=== PATIENT | male | born 1990 | race American Indian/Alaskan Native ===

== ENCOUNTER 2017-03-12 00:17 | Emergency (ER) | payer OTHER ==
[2017-03-12 01:20] LABS: Basophils % (Auto) 0.3 % (0.0-1.8); Eosinophils % (Auto) 3.6 % (0.0-4.3); Hematocrit 44.4 % (35.5-45.6); Hemoglobin 15.2 gm/dl (11.8-15.2); Mean Corpuscular HGB Conc 34 % (32-34); Mean Corpuscular Hemoglobin 31 pg (28-32); Mean Corpuscular Volume 89 fl (84-94); Platelet Count 169 K/mm3 (140-440); Red Blood Count 4.96 M/mm3 (3.65-5.03); Red Cell Distribution Width 12.7 % (13.2-15.2); White Blood Count 12.3 K/mm3 (4.5-11.0)
--- NOTE | 2017-03-12 01:20 | XRay Report ---
FINAL REPORT EXAM: XR CHEST ROUTINE 2V HISTORY: shortness of breath TECHNIQUE: PA and lateral views of the chest were submitted. FINDINGS: The lungs are clear. The heart size is normal. Pleural fluid is not seen. The bones and soft tissues are well maintained. IMPRESSION: Within normal limits.
[2017-03-12 01:31] LABS: Anion Gap 18 mmol/L; BUN/Creatinine Ratio 9; Blood Urea Nitrogen 11 mg/dL (9-20); Carbon Dioxide 27 mmol/L (22-30); Chloride 99.2 mmol/L (98-107); Glucose 95 mg/dL (75-100); Sodium 140 mmol/L (137-145)
[2017-03-12] MEDS ORDERED: PROVENTIL IH ONE ×4 (02:28→03:01)
[2017-03-12] MEDS ORDERED: DELTASONE PO ONE (03:02)
[2017-03-12] MEDS ORDERED: ATROVENT IH ONE ×2 (03:03→03:12)
[2017-03-12] MEDS ORDERED: DUONEB *Not for PRN Use IH ONE ×2 (07:55→07:58)
--- NOTE | 2017-03-12 10:09 | Emergency Department Report ---
ED Shortness of Breath HPI - General Chief Complaint: Upper Respiratory Infection Stated Complaint: SOB Time Seen by Provider: 03/12/17 06:40 Source: patient Mode of arrival: Ambulatory Limitations: No Limitations - History of Present Illness Initial Comments: The complains of white productive sputum, wheezing for the last few days. He denies fever chills chest pain leg pain swelling or recent travel. He states he 's been treated with bronchodilator type medicine past. Never been hospitalized however. He experienced some tightness in his chest associated with his wheezing but not otherwise. MD Complaint: "asthma attack" -: days(s) Quality: other Consistency: intermittent Improves With: nothing Worsens With: nothing Associated Symptoms: denies other symptoms - Related Data Previous Rx's Medication Instructions Recorded Last Taken Type ALBUTEROL Inhaler [ProAir HFA 2 puff IH QID PRN #1 inhalation 03/12/17 Unknown Rx Inhaler] Azithromycin [Zithromax] 250 mg PO DAILY #6 tablet 03/12/17 Unknown Rx predniSONE [Deltasone] 40 mg PO QDAY #7 tab 03/12/17 Unknown Rx Allergies Allergy/AdvReac Type Severity Reaction Status Date / Time No Known Allergies Allergy Unverified 12/29/12 23:32 ED Review of Systems ROS: Stated complaint: SOB Other details as noted in HPI Constitutional: denies: chills, fever Eyes: denies: eye pain, eye discharge, vision change ENT: denies: ear pain, throat pain Respiratory: cough, wheezing Cardiovascular: denies: chest pain, palpitations Endocrine: no symptoms reported Gastrointestinal: denies: abdominal pain, nausea, diarrhea Genitourinary: denies: urgency, dysuria Musculoskeletal: denies: back pain, joint swelling, arthralgia Skin: denies: rash, lesions Neurological: denies: headache, weakness, paresthesias Psychiatric: denies: anxiety, depression Hematological/Lymphatic: denies: easy bleeding, easy bruising ED Past Medical Hx - Past Medical History Previous Medical History?: Yes Hx Asthma: Yes - Surgical History Past Surgical History?: No - Social History Smoking Status: Current Every Day Smoker Substance Use Type: Alcohol, Marijuana - Medications Home Medications: Home Medications Medication Instructions Recorded Confirmed Last Taken Type ALBUTEROL Inhaler [ProAir HFA 2 puff IH QID PRN #1 inhalation 03/12/17 Unknown Rx Inhaler] Azithromycin [Zithromax] 250 mg PO DAILY #6 tablet 03/12/17 Unknown Rx predniSONE [Deltasone] 40 mg PO QDAY #7 tab 03/12/17 Unknown Rx ED Physical Exam - General Limitations: No Limitations General appearance: alert, in no apparent distress - Head Head exam: Present: atraumatic, normocephalic - Eye Eye exam: Present: normal appearance. Absent: scleral icterus - ENT ENT exam: Present: mucous membranes moist - Neck Neck exam: Present: normal inspection - Respiratory Respiratory exam: Present: wheezes. Absent: respiratory distress - Cardiovascular Cardiovascular Exam: Present: regular rate, normal rhythm. Absent: systolic murmur, diastolic murmur, rubs, gallop - GI/Abdominal GI/Abdominal exam: Present: soft, normal bowel sounds. Absent: distended, tenderness, guarding, rebound, rigid - Rectal Rectal exam: Present: deferred - Extremities Exam Extremities exam: Present: normal inspection - Back Exam Back exam: Present: normal inspection - Neurological Exam Neurological exam: Present: alert, oriented X3 - Psychiatric Psychiatric exam: Present: normal affect, normal mood - Skin Skin exam: Present: warm, dry, intact, normal color. Absent: rash ED Course Vital Signs 03/12/17 03/12/17 03/12/17 00:48 02:33 02:47 Temperature 98.3 F Pulse Rate 94 H Pulse Rate [ 94 H 99 H Posterior Bilateral Throughout] Respiratory 20 Rate Respiratory 22 22 Rate [Posterior Bilateral Throughout] Blood Pressure 118/55 Blood Pressure [Left] O2 Sat by Pulse 95 Oximetry 03/12/17 03/12/17 03/12/17 03:05 04:06 04:15 Temperature 98.6 F Pulse Rate 110 H Pulse Rate [ 100 H 114 H Posterior Bilateral Throughout] Respiratory 18 Rate Respiratory 22 22 Rate [Posterior Bilateral Throughout] Blood Pressure Blood Pressure 115/70 [Left] O2 Sat by Pulse 95 Oximetry 03/12/17 03/12/17 03/12/17 06:30 07:20 07:46 Temperature 97.8 F Pulse Rate 82 79 76 Pulse Rate [ Posterior Bilateral Throughout] Respiratory 18 14 17 Rate Respiratory Rate [Posterior Bilateral Throughout] Blood Pressure Blood Pressure 134/63 128/59 [Left] O2 Sat by Pulse 92 95 94 Oximetry 03/12/17 03/12/17 03/12/17 07:58 08:00 08:16 Temperature Pulse Rate 85 114 H Pulse Rate [ 83 Posterior Bilateral Throughout] Respiratory 8 L 15 Rate Respiratory 18 Rate [Posterior Bilateral Throughout] Blood Pressure 131/65 131/65 Blood Pressure [Left] O2 Sat by Pulse 94 93 Oximetry 03/12/17 03/12/17 03/12/17 08:30 08:40 08:46 Temperature Pulse Rate 86 88 Pulse Rate [ 87 Posterior Bilateral Throughout] Respiratory 17 19 Rate Respiratory 18 Rate [Posterior Bilateral Throughout] Blood Pressure 126/67 126/67 Blood Pressure [Left] O2 Sat by Pulse 93 93 Oximetry 03/12/17 03/12/17 03/12/17 09:00 09:16 09:30 Temperature Pulse Rate 93 H 78 76 Pulse Rate [ Posterior Bilateral Throughout] Respiratory 16 19 18 Rate Respiratory Rate [Posterior Bilateral Throughout] Blood Pressure 125/77 125/77 117/63 Blood Pressure [Left] O2 Sat by Pulse 93 89 92 Oximetry 03/12/17 03/12/17 03/12/17 09:46 10:00 10:16 Temperature Pulse Rate 93 H 72 101 H Pulse Rate [ Posterior Bilateral Throughout] Respiratory 22 23 15 Rate Respiratory Rate [Posterior Bilateral Throughout] Blood Pressure 117/63 127/67 127/67 Blood Pressure [Left] O2 Sat by Pulse 92 89 92 Oximetry 03/12/17 03/12/17 03/12/17 10:30 10:46 11:00 Temperature Pulse Rate 75 90 83 Pulse Rate [ Posterior Bilateral Throughout] Respiratory 19 17 17 Rate Respiratory Rate [Posterior Bilateral Throughout] Blood Pressure 131/72 131/72 131/72 Blood Pressure [Left] O2 Sat by Pulse 93 93 94 Oximetry 03/12/17 03/12/17 03/12/17 11:16 11:30 11:46 Temperature Pulse Rate 84 81 71 Pulse Rate [ Posterior Bilateral Throughout] Respiratory 20 20 27 H Rate Respiratory Rate [Posterior Bilateral Throughout] Blood Pressure 134/68 134/68 134/57 Blood Pressure [Left] O2 Sat by Pulse 95 90 88 Oximetry 03/12/17 03/12/17 03/12/17 12:00 12:16 12:30 Temperature Pulse Rate 64 72 80 Pulse Rate [ Posterior Bilateral Throughout] Respiratory 22 20 19 Rate Respiratory Rate [Posterior Bilateral Throughout] Blood Pressure 114/52 114/52 114/52 Blood Pressure [Left] O2 Sat by Pulse 89 89 92 Oximetry 03/12/17 03/12/17 12:46 13:00 Temperature Pulse Rate 93 H 88 Pulse Rate [ Posterior Bilateral Throughout] Respiratory 17 18 Rate Respiratory Rate [Posterior Bilateral Throughout] Blood Pressure 133/79 123/56 Blood Pressure [Left] O2 Sat by Pulse 92 93 Oximetry - Reevaluation(s) Reevaluation #1: Wheezing resolved after medication. Patient desires discharge. 03/12/17 14:01 ED Medical Decision Making - Lab Data Result diagrams: 03/12/17 00:55 03/12/17 00:55 Laboratory Results - last 24 hr 03/12/17 03/12/17 00:55 00:55 WBC 12.3 H RBC 4.96 Hgb 15.2 Hct 44.4 MCV 89 MCH 31 MCHC 34 RDW 12.7 L Plt Count 169 Lymph % (Auto) 14.0 [place] % (Auto) 12.6 H Eos % (Auto) 3.6 Baso % (Auto) 0.3 Lymph # 1.7 [place] # 1.6 H Eos # 0.4 Baso # 0.0 Seg Neutrophils % 69.5 Seg Neutrophils # 8.6 H Sodium 140 Potassium 4.0 Chloride 99.2 Carbon Dioxide 27 Anion Gap 18 BUN 11 Creatinine 1.2 Estimated GFR > 60 BUN/Creatinine Ratio 9 Glucose 95 Calcium 10.0 - EKG Data EKG shows normal: sinus rhythm, axis, intervals, QRS complexes, ST-T waves Rate: normal - EKG Data Interpretation: nonspecific ST-T wave smita - Radiology Data interpreted by me: Chest x-ray shows no acute process Critical care attestation.: If time is entered above; I have spent that time in minutes in the direct care of this critically ill patient, excluding procedure time. ED Disposition Clinical Impression: Reactive airways dysfunction syndrome Qualifiers: Asthma severity: moderate Asthma persistence: persistent Asthma complication type: uncomplicated Qualified Code(s): J45.40 - Moderate persistent asthma, uncomplicated Acute bronchitis Qualifiers: Bronchitis organism: unspecified organism Qualified Code(s): J20.9 - Acute bronchitis, unspecified Disposition: DC-01 TO HOME OR SELFCARE Is pt being admited?: No Does the pt Need Aspirin: No Condition: Stable Instructions: Acute Bronchitis (ED), Reactive Airways Disease (ED) Additional Instructions: Do not smoke. This will make your wheezing recur. Rx as directed. Follow-up with a primary care physician or [facility]. Prescriptions: ALBUTEROL Inhaler [ProAir HFA Inhaler] 2 puff IH QID PRN #1 inhalation PRN Reason: Wheezing Azithromycin [Zithromax] 250 mg PO DAILY #6 tablet predniSONE [Deltasone] 40 mg PO QDAY #7 tab Referrals: PRIMARY CARE, [Primary Care Provider] - 3-5 Days Time of Disposition: 14:04
[2017-03-12] MEDS ORDERED: MAGNESIUM SULFATE 2GM/50ML 2 GM/50 ML BAG IV ONE (10:14)
[2017-03-12] MEDS ORDERED: NACL 0.9% 1000 ML 1,000 ML IV ONE (10:14)
[2017-03-12] MEDS ORDERED: ZITHROMAX PO ONE (10:15)
[2017-03-12 13:32] VITALS: BP 123/56
== END 2017-03-12 14:20 | disposition home or self-care (01) ==
LOC: ED 00:17
DX: J45.40 Moderate persistent asthma, uncomplicated (principal); J20.9 Acute bronchitis, unspecified; F17.200 Nicotine dependence, unspecified, uncomplicated
CPT/HCPCS: 36415; 71020; 80048; 85025; 87040; 93005; 93010; 94640; 96365; 99284; J3475; J7030; J7512

== ENCOUNTER 2018-07-21 23:04 | Emergency (ER) | payer OTHER ==
[2018-07-21] MEDS ORDERED: PROVENTIL IH ONE ×3 (23:14→23:43)
[2018-07-21] MEDS ORDERED: DUONEB *Not for PRN Use IH ONE ×2 (23:14→23:17)
[2018-07-21] MEDS ORDERED: BENADRYL IM ONE (23:43)
[2018-07-21] MEDS ORDERED: DELTASONE PO STA (23:43)
--- NOTE | 2018-07-22 00:50 | Emergency Department Report ---
ED Asthma HPI - General Chief Complaint: Dyspnea/Respdistress Stated Complaint: ROSA Time Seen by Provider: 07/21/18 23:43 Source: patient Mode of arrival: Ambulatory Limitations: No Limitations - History of Present Illness Initial Comments: 27-year-old male with past history of asthma exacerbation department complaining of a flareup. States that he has a known history of asthma and utilizes an inhaler off and on with pollen increase she's been having sinus congestion, wheezing and coughing. No fever, chills, sweats, no hemoptysis, hematemesis, no hematochezia. States that this child's nebulizer at home helps his symptoms. MD Complaint: wheezing -: Gradual Severity: mild Context: allergen exposure Associated Symptoms: productive cough Treatments Prior to Arrival: inhaled bronchodilator - Related Data Current Asthma Therapy: none Previous Rx's Medication Instructions Recorded Last Taken Type ALBUTEROL Inhaler (OR & NICU) 2 puff IH QID PRN #1 inhalation 03/12/17 Unknown Rx [ProAir HFA Inhaler] Azithromycin [Zithromax] 250 mg PO DAILY #6 tablet 03/12/17 Unknown Rx predniSONE [Deltasone] 40 mg PO QDAY #7 tab 03/12/17 Unknown Rx ALBUTEROL Inhaler (OR & NICU) 1 puff IH Q4-6H PRN #1 inha 07/22/18 Unknown Rx [ProAir HFA Inhaler] ALBUTEROL NEB's [Proventil 0.083% 2.5 mg IH TID PRN #30 neb 07/22/18 Unknown Rx NEBS] Amoxicillin/Potassium Clav 1 each PO BID #20 tablet 07/22/18 Unknown Rx [Augmentin 875-125 Tablet] Nebulizer and Compressor 1 each MC PRN #1 each 07/22/18 Unknown Rx [Devilbiss Pulmoneb Lt Comp-Neb] predniSONE [Deltasone] 50 mg PO QDAY #5 tab 07/22/18 Unknown Rx Allergies Allergy/AdvReac Type Severity Reaction Status Date / Time No Known Allergies Allergy Unverified 12/29/12 23:32 ED Review of Systems ROS: Stated complaint: ROSA Other details as noted in HPI Constitutional: denies: chills, fever Eyes: denies: eye pain, eye discharge, vision change ENT: denies: ear pain, throat pain Respiratory: denies: cough, shortness of breath, wheezing Cardiovascular: denies: chest pain, palpitations Endocrine: no symptoms reported Gastrointestinal: denies: abdominal pain, nausea, diarrhea Genitourinary: denies: urgency, dysuria Musculoskeletal: denies: back pain, joint swelling, arthralgia Skin: denies: rash, lesions Neurological: denies: headache, weakness, paresthesias Psychiatric: denies: anxiety, depression Hematological/Lymphatic: denies: easy bleeding, easy bruising ED Past Medical Hx - Past Medical History Previous Medical History?: Yes Hx Asthma: Yes Additional medical history: sleep apnea - Surgical History Past Surgical History?: No - Social History Smoking Status: Current Every Day Smoker Substance Use Type: Alcohol - Medications Home Medications: Home Medications Medication Instructions Recorded Confirmed Last Taken Type ALBUTEROL Inhaler (OR & NICU) 2 puff IH QID PRN #1 inhalation 03/12/17 Unknown Rx [ProAir HFA Inhaler] Azithromycin [Zithromax] 250 mg PO DAILY #6 tablet 03/12/17 Unknown Rx predniSONE [Deltasone] 40 mg PO QDAY #7 tab 03/12/17 Unknown Rx ALBUTEROL Inhaler (OR & NICU) 1 puff IH Q4-6H PRN #1 inha 07/22/18 Unknown Rx [ProAir HFA Inhaler] ALBUTEROL NEB's [Proventil 0.083% 2.5 mg IH TID PRN #30 neb 07/22/18 Unknown Rx NEBS] Amoxicillin/Potassium Clav 1 each PO BID #20 tablet 07/22/18 Unknown Rx [Augmentin 875-125 Tablet] Nebulizer and Compressor 1 each MC PRN #1 each 07/22/18 Unknown Rx [Devilbiss Pulmoneb Lt Comp-Neb] predniSONE [Deltasone] 50 mg PO QDAY #5 tab 07/22/18 Unknown Rx ED Physical Exam - General Limitations: No Limitations General appearance: alert, in no apparent distress - Head Head exam: Present: atraumatic, normocephalic - Eye Eye exam: Present: normal appearance, PERRL, EOMI - ENT ENT exam: Present: normal exam, normal orophraynx, mucous membranes moist, TM's normal bilaterally - Neck Neck exam: Present: normal inspection, full ROM. Absent: tenderness, lymphadenopathy - Respiratory Respiratory exam: Present: normal lung sounds bilaterally, wheezes. Absent: respiratory distress, rales, rhonchi, stridor, chest wall tenderness, accessory muscle use, decreased breath sounds - Cardiovascular Cardiovascular Exam: Present: regular rate, normal rhythm. Absent: bradycardia, systolic murmur, diastolic murmur, rubs, gallop - GI/Abdominal GI/Abdominal exam: Present: soft, normal bowel sounds. Absent: tenderness, guarding - Rectal Rectal exam: Present: deferred - Extremities Exam Extremities exam: Present: normal inspection - Back Exam Back exam: Present: normal inspection - Neurological Exam Neurological exam: Present: alert, oriented X3 - Psychiatric Psychiatric exam: Present: normal affect, normal mood - Skin Skin exam: Present: warm, dry, intact, normal color. Absent: rash ED Course Vital Signs 07/21/18 23:06 Temperature 97.9 F Pulse Rate 94 H Respiratory 20 Rate Blood Pressure 140/69 O2 Sat by Pulse 98 Oximetry - Reevaluation(s) Reevaluation #1: 07/22/18 00:57 Improve her breathing. Decreased wheezing. ED Medical Decision Making - Medical Decision Making Discussed with Mr. Acosta was in the [place] utilize his inhaler as prescribed and utilize a and obtain a home nebulizer. Also advised him nasal saline wash for his sinusitis and sinus congestion. Advised to complete the course of the anabiotic's Critical care attestation.: If time is entered above; I have spent that time in minutes in the direct care of this critically ill patient, excluding procedure time. ED Disposition Clinical Impression: Asthma, Sinusitis Disposition: DC-01 TO HOME OR SELFCARE Is pt being admited?: No Does the pt Need Aspirin: No Condition: Stable Instructions: Asthma (ED), Reactive Airways Disease (ED), Sinusitis (ED), Acute Bacterial Rhinosinusitis (ED) Prescriptions: predniSONE [Deltasone] 50 mg PO QDAY #5 tab ALBUTEROL Inhaler (OR & NICU) [ProAir HFA Inhaler] 1 puff IH Q4-6H PRN #1 inha PRN Reason: Cough Referrals: PRIMARY CARE, [Primary Care Provider] - 3-5 Days
[2018-07-22 01:53] VITALS: BP 145/79
== END 2018-07-22 01:20 | disposition home or self-care (01) ==
LOC: ED 23:04
DX: J32.9 Chronic sinusitis, unspecified (principal); J45.909 Unspecified asthma, uncomplicated; F17.200 Nicotine dependence, unspecified, uncomplicated; Z79.899 Other long term (current) drug therapy
CPT/HCPCS: 96372; 99283; J1200; J7512

== ENCOUNTER 2019-06-14 13:51 | Emergency (ER) | payer SELFPAY ==
[2019-06-14 15:16] VITALS: BP 141/76
--- NOTE | 2019-06-14 15:19 | Emergency Department Report ---
ED ENT HPI - General Chief complaint: Allergic Reaction Stated complaint: SORE THROAT, NECK PAIN Time Seen by Provider: 06/14/19 15:13 Source: EMS Mode of arrival: Ambulatory Limitations: No Limitations - History of Present Illness Initial comments: pt is a 28 yo male who presents to the ED with c/o sore throat that began last night. he has associated discomfort with swallowing. he denies any fever, n/v/d, no cough. he is able to tolerate PO intake. states that his girlfriend has strep throat. no PMHx. no allergies to meds. - Related Data Previous Rx's Medication Instructions Recorded Last Taken Type Albuterol INH(or & Nicu Only) 2 puff IH QID PRN #1 inhalation 03/12/17 Unknown Rx [ProAir HFA Inhaler] Azithromycin [Zithromax] 250 mg PO DAILY #6 tablet 03/12/17 Unknown Rx predniSONE [Deltasone] 40 mg PO QDAY #7 tab 03/12/17 Unknown Rx ALBUTEROL NEB's [Proventil 0.083% 2.5 mg IH TID PRN #30 neb 07/22/18 Unknown Rx NEBS] Albuterol INH(or & Nicu Only) 1 puff IH Q4-6H PRN #1 inha 07/22/18 Unknown Rx [ProAir HFA Inhaler] Amoxicillin/Potassium Clav 1 each PO BID #20 tablet 07/22/18 Unknown Rx [Augmentin 875-125 Tablet] Nebulizer and Compressor 1 each MC PRN #1 each 07/22/18 Unknown Rx [Devilbiss Pulmoneb Lt Comp-Neb] predniSONE [Deltasone] 50 mg PO QDAY #5 tab 07/22/18 Unknown Rx Allergies Allergy/AdvReac Type Severity Reaction Status Date / Time No Known Allergies Allergy Unverified 12/29/12 23:32 ED Dental HPI - General Chief complaint: Allergic Reaction Stated complaint: SORE THROAT, NECK PAIN Time Seen by Provider: 06/14/19 15:13 Source: EMS Mode of arrival: Ambulatory Limitations: No Limitations - Related Data Previous Rx's Medication Instructions Recorded Last Taken Type Albuterol INH(or & Nicu Only) 2 puff IH QID PRN #1 inhalation 03/12/17 Unknown Rx [ProAir HFA Inhaler] Azithromycin [Zithromax] 250 mg PO DAILY #6 tablet 03/12/17 Unknown Rx predniSONE [Deltasone] 40 mg PO QDAY #7 tab 03/12/17 Unknown Rx ALBUTEROL NEB's [Proventil 0.083% 2.5 mg IH TID PRN #30 neb 07/22/18 Unknown Rx NEBS] Albuterol INH(or & Nicu Only) 1 puff IH Q4-6H PRN #1 inha 07/22/18 Unknown Rx [ProAir HFA Inhaler] Amoxicillin/Potassium Clav 1 each PO BID #20 tablet 07/22/18 Unknown Rx [Augmentin 875-125 Tablet] Nebulizer and Compressor 1 each MC PRN #1 each 07/22/18 Unknown Rx [Devilbiss Pulmoneb Lt Comp-Neb] predniSONE [Deltasone] 50 mg PO QDAY #5 tab 07/22/18 Unknown Rx Allergies Allergy/AdvReac Type Severity Reaction Status Date / Time No Known Allergies Allergy Unverified 12/29/12 23:32 ED Review of Systems ROS: Stated complaint: SORE THROAT, NECK PAIN Other details as noted in HPI ED Past Medical Hx - Past Medical History Previous Medical History?: Yes Hx Asthma: Yes Additional medical history: sleep apnea - Surgical History Past Surgical History?: No - Social History Smoking Status: Current Every Day Smoker Substance Use Type: Alcohol - Medications Home Medications: Home Medications Medication Instructions Recorded Confirmed Last Taken Type Albuterol INH(or & Nicu Only) 2 puff IH QID PRN #1 inhalation 03/12/17 Unknown Rx [ProAir HFA Inhaler] Azithromycin [Zithromax] 250 mg PO DAILY #6 tablet 03/12/17 Unknown Rx predniSONE [Deltasone] 40 mg PO QDAY #7 tab 03/12/17 Unknown Rx ALBUTEROL NEB's [Proventil 0.083% 2.5 mg IH TID PRN #30 neb 07/22/18 Unknown Rx NEBS] Albuterol INH(or & Nicu Only) 1 puff IH Q4-6H PRN #1 inha 07/22/18 Unknown Rx [ProAir HFA Inhaler] Amoxicillin/Potassium Clav 1 each PO BID #20 tablet 07/22/18 Unknown Rx [Augmentin 875-125 Tablet] Nebulizer and Compressor 1 each MC PRN #1 each 07/22/18 Unknown Rx [Devilbiss Pulmoneb Lt Comp-Neb] predniSONE [Deltasone] 50 mg PO QDAY #5 tab 07/22/18 Unknown Rx ED Physical Exam - General Limitations: No Limitations ED Course Vital Signs 06/14/19 13:55 Temperature 97.8 F Pulse Rate 86 Respiratory 18 Rate Blood Pressure 141/71 [Right] O2 Sat by Pulse 100 Oximetry Critical care attestation.: If time is entered above; I have spent that time in minutes in the direct care of this critically ill patient, excluding procedure time. ED Disposition Condition: Stable
--- NOTE | 2019-06-14 15:20 | Event Note ---
ED Screening Note ED Screening Note: pt is a 28 yo male who presents to the ED with c/o sore throat that began last night. he has associated discomfort with swallowing. he denies any fever, n/v/d, no cough. he is able to tolerate PO intake. states that his girlfriend has strep throat. no PMHx. no allergies to meds. otitis externa left mild erythema of the posterior oropharynx, no exudates, no LAD does not meet centor for empiric tx, will swab for strep This initial assessment/diagnostic orders/clinical plan/treatment(s) is/are subject to change based on patients health status, clinical progression and re- assessment by fellow clinical providers in the ED. Further treatment and workup at subsequent clinical providers discretion. Patient/guardian urged not to elope from the ED as their condition may be serious if not clinically assessed and managed. Initial orders include: rapid strep
--- NOTE | 2019-06-14 17:54 | Emergency Department Report ---
ED ENT HPI - General Chief complaint: Allergic Reaction Stated complaint: SORE THROAT, NECK PAIN Time Seen by Provider: 06/14/19 15:13 Source: EMS Mode of arrival: Ambulatory Limitations: No Limitations - History of Present Illness Initial comments: pt is a 28 yo male who presents to the ED with c/o sore throat that began last night. he has associated discomfort with swallowing. he denies any fever, n/v/d, no cough. he is able to tolerate PO intake. states that his girlfriend has strep throat. no PMHx. no allergies to meds. - Related Data Previous Rx's Medication Instructions Recorded Last Taken Type Albuterol INH(or & Nicu Only) 2 puff IH QID PRN #1 inhalation 03/12/17 Unknown Rx [ProAir HFA Inhaler] Azithromycin [Zithromax] 250 mg PO DAILY #6 tablet 03/12/17 Unknown Rx predniSONE [Deltasone] 40 mg PO QDAY #7 tab 03/12/17 Unknown Rx ALBUTEROL NEB's [Proventil 0.083% 2.5 mg IH TID PRN #30 neb 07/22/18 Unknown Rx NEBS] Albuterol INH(or & Nicu Only) 1 puff IH Q4-6H PRN #1 inha 07/22/18 Unknown Rx [ProAir HFA Inhaler] Amoxicillin/Potassium Clav 1 each PO BID #20 tablet 07/22/18 Unknown Rx [Augmentin 875-125 Tablet] Nebulizer and Compressor 1 each MC PRN #1 each 07/22/18 Unknown Rx [Devilbiss Pulmoneb Lt Comp-Neb] predniSONE [Deltasone] 50 mg PO QDAY #5 tab 07/22/18 Unknown Rx Amoxicillin [Amoxicillin TAB] 875 mg PO BID 10 Days #20 tablet 06/14/19 Unknown Rx Allergies Allergy/AdvReac Type Severity Reaction Status Date / Time No Known Allergies Allergy Unverified 12/29/12 23:32 ED Dental HPI - General Chief complaint: Allergic Reaction Stated complaint: SORE THROAT, NECK PAIN Time Seen by Provider: 06/14/19 15:13 Source: EMS Mode of arrival: Ambulatory Limitations: No Limitations - Related Data Previous Rx's Medication Instructions Recorded Last Taken Type Albuterol INH(or & Nicu Only) 2 puff IH QID PRN #1 inhalation 03/12/17 Unknown Rx [ProAir HFA Inhaler] Azithromycin [Zithromax] 250 mg PO DAILY #6 tablet 03/12/17 Unknown Rx predniSONE [Deltasone] 40 mg PO QDAY #7 tab 03/12/17 Unknown Rx ALBUTEROL NEB's [Proventil 0.083% 2.5 mg IH TID PRN #30 neb 07/22/18 Unknown Rx NEBS] Albuterol INH(or & Nicu Only) 1 puff IH Q4-6H PRN #1 inha 07/22/18 Unknown Rx [ProAir HFA Inhaler] Amoxicillin/Potassium Clav 1 each PO BID #20 tablet 07/22/18 Unknown Rx [Augmentin 875-125 Tablet] Nebulizer and Compressor 1 each MC PRN #1 each 07/22/18 Unknown Rx [Devilbiss Pulmoneb Lt Comp-Neb] predniSONE [Deltasone] 50 mg PO QDAY #5 tab 07/22/18 Unknown Rx Amoxicillin [Amoxicillin TAB] 875 mg PO BID 10 Days #20 tablet 06/14/19 Unknown Rx Allergies Allergy/AdvReac Type Severity Reaction Status Date / Time No Known Allergies Allergy Unverified 12/29/12 23:32 ED Review of Systems ROS: Stated complaint: SORE THROAT, NECK PAIN Other details as noted in HPI Comment: All other systems reviewed and negative ED Past Medical Hx - Past Medical History Previous Medical History?: Yes Hx Asthma: Yes Additional medical history: sleep apnea - Surgical History Past Surgical History?: No - Social History Smoking Status: Current Every Day Smoker Substance Use Type: Alcohol, Marijuana - Medications Home Medications: Home Medications Medication Instructions Recorded Confirmed Last Taken Type Albuterol INH(or & Nicu Only) 2 puff IH QID PRN #1 inhalation 03/12/17 Unknown Rx [ProAir HFA Inhaler] Azithromycin [Zithromax] 250 mg PO DAILY #6 tablet 03/12/17 Unknown Rx predniSONE [Deltasone] 40 mg PO QDAY #7 tab 03/12/17 Unknown Rx ALBUTEROL NEB's [Proventil 0.083% 2.5 mg IH TID PRN #30 neb 07/22/18 Unknown Rx NEBS] Albuterol INH(or & Nicu Only) 1 puff IH Q4-6H PRN #1 inha 04/03/19 Unknown Rx [ProAir HFA Inhaler] Amoxicillin/Potassium Clav 1 each PO BID #20 tablet 07/22/18 Unknown Rx [Augmentin 875-125 Tablet] Nebulizer and Compressor 1 each MC PRN #1 each 07/22/18 Unknown Rx [Devilbiss Pulmoneb Lt Comp-Neb] predniSONE [Deltasone] 50 mg PO QDAY #5 tab 07/22/18 Unknown Rx Amoxicillin [Amoxicillin TAB] 875 mg PO BID 10 Days #20 tablet 06/14/19 Unknown Rx ED Physical Exam - General Limitations: No Limitations General appearance: alert, in no apparent distress - Head Head exam: Present: atraumatic, normocephalic - Eye Eye exam: Present: normal appearance - ENT ENT exam: Present: mucous membranes moist, TM's normal bilaterally, normal external ear exam, other (posterior orophraynx erythema, no tonsilar exudates or masses, mild hypertrophy of the bilateral tonsils, uvula is midline, no uvular edema, no uvular deviation) - Neck Neck exam: Absent: lymphadenopathy - Respiratory Respiratory exam: Present: normal lung sounds bilaterally. Absent: respiratory distress, wheezes, rales, rhonchi, stridor, chest wall tenderness, accessory muscle use, decreased breath sounds, prolonged expiratory - Cardiovascular Cardiovascular Exam: Present: regular rate, normal rhythm, normal heart sounds. Absent: systolic murmur, diastolic murmur, rubs, gallop - Neurological Exam Neurological exam: Present: alert, oriented X3 - Psychiatric Psychiatric exam: Present: normal affect, normal mood - Skin Skin exam: Present: warm, dry, intact ED Course Vital Signs 06/14/19 06/14/19 13:55 15:13 Temperature 97.8 F 97.8 F Pulse Rate 86 83 Respiratory 18 18 Rate Blood Pressure 141/76 Blood Pressure 141/71 [Right] O2 Sat by Pulse 100 99 Oximetry ED Medical Decision Making - Lab Data Lab Results 06/14/19 Range/Units Unknown Group A Strep Rapid Positive A (Negative) - Medical Decision Making pt is a 28 yo male who presents to the ED with c/o sore throat that began last night. he has associated discomfort with swallowing. he denies any fever, n/v/d, no cough. he is able to tolerate PO intake. states that his girlfriend has strep throat. no PMHx. no allergies to meds. on exam: posterior orophraynx erythema, no tonsilar exudates or masses, mild hypertrophy of the bilateral tonsils, uvula is midline, no uvular edema, no uvular deviation. vitals are normal. rapid strep is positive. given prescription for amoxicillin. advised to please take medication as prescribed. increase your fluid intake. may use warm salt water gargles and over the counter throat spray. may tylenol or ibuprofen as needed for discomfort. follow up with a primary care doctor. throw away your toothbrush. do not drink after others or allow others to drink after you. return to the emergency room for any new or worsening symptoms . - Differential Diagnosis pharyngitis, tonsillitis, peritonsillar abscess, viral syndrome Critical care attestation.: If time is entered above; I have spent that time in minutes in the direct care of this critically ill patient, excluding procedure time. ED Disposition Clinical Impression: Strep throat Disposition: DC-01 TO HOME OR SELFCARE Is pt being admited?: No Does the pt Need Aspirin: No Condition: Stable Instructions: Strep Throat (ED) Additional Instructions: please take medication as prescribed. increase your fluid intake. may use warm salt water gargles and over the counter throat spray. may tylenol or ibuprofen as needed for discomfort. follow up with a primary care doctor. throw away your toothbrush. do not drink after others or allow others to drink after you. return to the emergency room for any new or worsening symptoms . Prescriptions: Amoxicillin [Amoxicillin TAB] 875 mg PO BID 10 Days #20 tablet Referrals: AVERY HEATON MD [Staff Physician] - 3-5 Days [facility] [Outside] - 3-5 Days [facility] [Outside] - 3-5 Days Forms: Work/School Release Form(ED) Time of Disposition: 17:52 Print Language: NIGERIAN
== END 2019-06-14 18:20 | disposition home or self-care (01) ==
LOC: ED 13:51
DX: J02.0 Streptococcal pharyngitis (principal); B95.0 Streptococcus, group A, as the cause of diseases classified elsewhere; J45.909 Unspecified asthma, uncomplicated; F12.90 Cannabis use, unspecified, uncomplicated; F17.200 Nicotine dependence, unspecified, uncomplicated; G47.30 Sleep apnea, unspecified; Z79.899 Other long term (current) drug therapy
CPT/HCPCS: 87430

== ENCOUNTER 2019-11-28 22:52 | Emergency (ER) | payer SELFPAY ==
[2019-11-28] MEDS ORDERED: IPRATROPIUM/ALBUTEROL SULFATE 3 ML AMPUL.NEB IH ONE (23:20)
[2019-11-28] MEDS ORDERED: methylPREDNISolone Sod Succinate 125 MG/2 ML INJ IM ONE (23:20)
[2019-11-28] MEDS ORDERED: ALBUTEROL 2.5 MG/3 ML NEBU IH ONE (23:21)
--- NOTE | 2019-11-29 00:01 | XRay Report ---
CHEST 1 VIEW INDICATION / CLINICAL INFORMATION: dyspnea, asthma/bronchitis. COMPARISON: 03/12/2017 FINDINGS: SUPPORT DEVICES: None. HEART / MEDIASTINUM: No significant abnormality. LUNGS / PLEURA: No significant pulmonary or pleural abnormality. No pneumothorax. ADDITIONAL FINDINGS: No significant additional findings. IMPRESSION: No acute pulmonary or pleural abnormality. No change from 03/12/2017 Signer Name: Lazaro Ham MD FACEmilia Signed: 11/28/2019 11:57 PM Workstation Name: [id number]
--- NOTE | 2019-11-29 00:53 | Emergency Department Report ---
- General Chief Complaint: Adult Asthma Stated Complaint: BREATHING PROBLEMS/ASTHMA PUI?: No Source: patient Mode of arrival: Ambulatory Limitations: No Limitations - History of Present Illness Initial Comments: Patient is a 29-year-old -Maldivian male with a history of chronic bronchitis and obesity who presents to the ED with complaint of acute onset persistent nasal and sinus congestion, frontal sinus pressure, persistent dry cough with wheezing and shortness of breath for the last 2 days. Patient states that in the last 12 hours, the symptoms have worsened despite using his mother's albuterol inhaler. Patient states that the symptoms are similar to what he always experiences whenever his chronic bronchitis flares up. Patient denies chest pain, dizziness, syncope, fever, chills, nausea and vomiting, abdominal pain, diarrhea, sore throat, dysuria, traumatic injury or change in vision. MD Complaint: cough, rhinorrhea, nasal congestion, sinus pain, other (Shortness of breath, wheezing, and chest tightness) -: Sudden, days(s) (2) Severity: moderate Severity scale (0 -10): 5 Quality: dull, aching Consistency: intermittent Improves With: other (Albuterol inhaler, no relief) Worsens With: activity Associated Symptoms: denies other symptoms, headache, rhinorrhea, nasal congestion, cough, shortness of breath. denies: fever, chills, diaphoresis, sore throat, stiff neck, chest pain, abdominal pain, nausea, diarrhea, rash, right sweats, epistaxis, hoarseness, ear pain, other Treatments Prior to Arrival: other (Albuterol inhaler) - Related Data Previous Rx's Medication Instructions Recorded Last Taken Type Albuterol Mdi (or & Nicu Only) 2 puff IH QID PRN #1 inhalation 03/12/17 Unknown Rx [ProAir HFA Inhaler] predniSONE [Deltasone] 40 mg PO QDAY #7 tab 03/12/17 Unknown Rx Amoxicillin/Potassium Clav 1 each PO BID #20 tablet 07/22/18 Unknown Rx [Augmentin 875-125 Tablet] predniSONE [Deltasone] 50 mg PO QDAY #5 tab 07/22/18 Unknown Rx Amoxicillin [Amoxicillin TAB] 875 mg PO BID 10 Days #20 tablet 06/14/19 Unknown Rx ALBUTEROL NEB's [Proventil 0.083% 2.5 mg IH TID PRN #45 ml 11/29/19 Unknown Rx NEBS] Albuterol Mdi (or & Nicu Only) 1 puff IH Q4-6H PRN #1 inha 11/29/19 Unknown Rx [ProAir HFA Inhaler] Azithromycin [Zithromax Z-RE] 250 mg PO DAILY #6 tablet 11/29/19 Unknown Rx Nebulizer and Compressor 1 each MC PRN #1 each 11/29/19 Unknown Rx [Devilbiss Pulmoneb Lt Comp-Neb] Prednisone [predniSONE 10 mg 10 mg PO .TAPER #21 tab.ds.pk 11/29/19 Unknown Rx (6-Day Pack, 21 Tabs)] Allergies Allergy/AdvReac Type Severity Reaction Status Date / Time No Known Allergies Allergy Unverified 12/29/12 23:32 ED Review of Systems ROS: Stated complaint: BREATHING PROBLEMS/ASTHMA Other details as noted in HPI Constitutional: denies: chills, fever Eyes: denies: eye pain, eye discharge, vision change ENT: congestion, other (Frontal sinus pressure). denies: ear pain, throat pain Respiratory: cough, shortness of breath, wheezing Cardiovascular: chest pain (Chest tightness). denies: palpitations Endocrine: no symptoms reported. denies: excessive sweating Gastrointestinal: denies: abdominal pain, nausea, diarrhea Genitourinary: denies: urgency, dysuria Musculoskeletal: denies: back pain, joint swelling, arthralgia Skin: denies: rash, lesions Neurological: headache. denies: weakness, paresthesias Psychiatric: denies: anxiety, depression Hematological/Lymphatic: denies: easy bleeding, easy bruising ED Past Medical Hx - Past Medical History Previous Medical History?: Yes Hx Asthma: Yes Additional medical history: sleep apnea, Bronchitis - Surgical History Past Surgical History?: No - Social History Smoking Status: Former Smoker Substance Use Type: None - Medications Home Medications: Home Medications Medication Instructions Recorded Confirmed Last Taken Type Albuterol Mdi (or & Nicu Only) 2 puff IH QID PRN #1 inhalation 03/12/17 Unknown Rx [ProAir HFA Inhaler] predniSONE [Deltasone] 40 mg PO QDAY #7 tab 03/12/17 Unknown Rx Amoxicillin/Potassium Clav 1 each PO BID #20 tablet 07/22/18 Unknown Rx [Augmentin 875-125 Tablet] predniSONE [Deltasone] 50 mg PO QDAY #5 tab 07/22/18 Unknown Rx Amoxicillin [Amoxicillin TAB] 875 mg PO BID 10 Days #20 tablet 06/14/19 Unknown Rx ALBUTEROL NEB's [Proventil 0.083% 2.5 mg IH TID PRN #45 ml 11/29/19 Unknown Rx NEBS] Albuterol Mdi (or & Nicu Only) 1 puff IH Q4-6H PRN #1 inha 11/29/19 Unknown Rx [ProAir HFA Inhaler] Azithromycin [Zithromax Z-RE] 250 mg PO DAILY #6 tablet 11/29/19 Unknown Rx Nebulizer and Compressor 1 each MC PRN #1 each 11/29/19 Unknown Rx [Devilbiss Pulmoneb Lt Comp-Neb] Prednisone [predniSONE 10 mg 10 mg PO .TAPER #21 tab.ds.pk 11/29/19 Unknown Rx (6-Day Pack, 21 Tabs)] ED Physical Exam - General Limitations: No Limitations General appearance: alert, in no apparent distress - Head Head exam: Present: atraumatic, normocephalic, normal inspection - Eye Eye exam: Present: normal appearance, PERRL, EOMI Pupils: Present: normal accommodation - ENT ENT exam: Present: normal orophraynx, mucous membranes moist, normal external ear exam, other (Grossly congested nasal passages; palpable frontal sinus tenderness) - Neck Neck exam: Present: normal inspection, full ROM. Absent: tenderness, lymphadenopathy - Respiratory Respiratory exam: Present: wheezes (Diffuse coarse wheezes throughout). Absent: respiratory distress, rales, rhonchi, chest wall tenderness, accessory muscle use, decreased breath sounds, prolonged expiratory - Cardiovascular Cardiovascular Exam: Present: normal rhythm, tachycardia, normal heart sounds. Absent: systolic murmur, diastolic murmur, rubs, gallop - GI/Abdominal GI/Abdominal exam: Present: soft, normal bowel sounds. Absent: tenderness, guarding, rebound, hyperactive bowel sounds, hypoactive bowel sounds - Extremities Exam Extremities exam: Present: normal inspection, full ROM, normal capillary refill - Back Exam Back exam: Present: normal inspection, full ROM. Absent: tenderness, CVA tenderness (R), CVA tenderness (L), muscle spasm, paraspinal tenderness, vertebral tenderness - Neurological Exam Neurological exam: Present: alert, oriented X3, CN II-XII intact, normal gait, reflexes normal - Psychiatric Psychiatric exam: Present: normal affect, normal mood - Skin Skin exam: Present: warm, dry, intact, normal color. Absent: rash ED Course Vital Signs 11/28/19 11/29/19 22:57 01:37 Temperature 99.0 F 98.3 F Pulse Rate 101 H 98 H Respiratory 18 16 Rate Blood Pressure 148/82 Blood Pressure 140/87 [Left] O2 Sat by Pulse 96 99 Oximetry ED Medical Decision Making - Radiology Data Radiology results: report reviewed, image reviewed Findings [facility] [address] [place] [address] XRay Report Signed Patient: OLIVIER RING JR MR#: [id number] : 1990 Acct:[id number] Age/Sex: 29 / M ADM Date: 11/28/19 Loc: ED Attending Dr: Ordering Physician: MARK MOLINA Date of Service: 11/28/19 Procedure(s): XR chest 1V ap Accession Number(s): [id number] cc: MARK MOLINA Fluoro Time In Minutes: CHEST 1 VIEW INDICATION / CLINICAL INFORMATION: dyspnea, asthma/bronchitis. COMPARISON: 03/12/2017 FINDINGS: SUPPORT DEVICES: None. HEART / MEDIASTINUM: No significant abnormality. LUNGS / PLEURA: No significant pulmonary or pleural abnormality. No pneumothorax. ADDITIONAL FINDINGS: No significant additional findings. IMPRESSION: No acute pulmonary or pleural abnormality. No change from 03/12/2017 Signer Name: Lazaro Ham MD FACR Signed: 11/28/2019 11:57 PM Workstation Name: [id number] Transcribed By: MS Dictated By: Lazaro Ham MD Electronically Authenticated By: Lazaro Ham MD Signed Date/Time: 11/28/192356 DD/ 55 TD/TT: - Medical Decision Making This is a 29-year-old -Maldivian male with a history of chronic bronchitis and obesity who presents to the ED with complaint of acute onset persistent nasal and sinus congestion, frontal sinus pressure, persistent dry cough with wheezing and shortness of breath for the last 2 days. Patient states that in the last 12 hours, the symptoms have worsened despite using his mother's albuterol inhaler. Patient states that the symptoms are similar to what he always experiences whenever his chronic bronchitis flares up. In the ED, patient is alert and oriented x3 and is not in distress but tachycardic in triage. Patient received DuoNeb treatment in the ED and also steroids. On reevaluation, patient's wheezing resolved with medications. Patient felt better. Chest x-ray shows no acute cardiopulmonary abnormalities or pneumonitis. Patient will discharge home on medications including albuterol inhaler, Medrol Dosepak and advised to follow-up with his primary care physician in 5 to 7 days for reevaluation or return to the ED immediately if symptoms get worse. - Differential Diagnosis Bronchitis; asthma; Pneumonia; sinusitis; URI Critical care attestation.: If time is entered above; I have spent that time in minutes in the direct care of this critically ill patient, excluding procedure time. ED Disposition Clinical Impression: Acute bronchitis with asthma with acute exacerbation, Acute upper respiratory infection, Shortness of breath Disposition: - TO HOME OR SELFCARE Is pt being admited?: No Does the pt Need Aspirin: No Condition: Stable Instructions: Upper Respiratory Infection (ED), Acute Bronchitis (ED), Dyspnea (ED) Additional Instructions: Chest x-ray shows no acute cardiopulmonary abnormalities or pneumonitis. Therefore take medications with food, drink plenty of fluids and follow-up with your primary care physician in 5 to 7 days for reevaluation. Return to the ED immediately if symptoms get worse. Prescriptions: Nebulizer and Compressor [Devilbiss Pulmoneb Lt Comp-Neb] 1 each MC PRN #1 each Prednisone [predniSONE 10 mg (6-Day Pack, 21 Tabs)] 10 mg PO .TAPER #21 tab.ds.pk Albuterol Mdi (or & Nicu Only) [ProAir HFA Inhaler] 1 puff IH Q4-6H PRN #1 inha PRN Reason: Cough ALBUTEROL NEB's [Proventil 0.083% NEBS] 2.5 mg IH TID PRN #45 ml PRN Reason: Wheezing Azithromycin [Zithromax Z-RE] 250 mg PO DAILY #6 tablet Referrals: [facility] [Provider Group] - 7-10 days Time of Disposition: 00:59 Print Language: ITALIAN
[2019-11-29 02:05] VITALS: BP 140/87
== END 2019-11-29 01:37 | disposition home or self-care (01) ==
LOC: ED 22:52
DX: J45.901 Unspecified asthma with (acute) exacerbation (principal); J06.9 Acute upper respiratory infection, unspecified; R06.02 Shortness of breath; Z87.891 Personal history of nicotine dependence; Z79.899 Other long term (current) drug therapy
CPT/HCPCS: 71045; 94640; 96372; 99283; J2930; 94644

== ENCOUNTER 2020-02-05 00:09 | Emergency (ER) | payer SELFPAY ==
--- NOTE | 2020-02-05 03:02 | XRay Report ---
LEFT FOOT 3 VIEWS INDICATION / CLINICAL INFORMATION: left great toe pain COMPARISON: None available. FINDINGS: BONES / JOINT(S): No acute fracture or subluxation. No significant arthritis. No erosions are seen. SOFT TISSUES: No significant abnormality. ADDITIONAL FINDINGS: None. Signer Name: Cali Gilman MD Signed: 02/05/2020 2:58 AM Workstation Name: [id number]
[2020-02-05] MEDS ORDERED: methylPREDNISolone Sod Succinate 125 MG/2 ML INJ IM ONE (03:31)
--- NOTE | 2020-02-05 03:32 | Emergency Department Report ---
ED Lower Extremity HPI - General Chief Complaint: Extremity Injury, Lower Stated Complaint: lt toe pains Time Seen by Provider: 02/05/20 03:15 Source: patient Mode of arrival: Ambulatory Limitations: No Limitations - History of Present Illness Initial Comments: Patient is a 29-year-old male that presents emergency room with complaints of left great toe pain. Patient states his pain started 1 week ago and is worsening. Patient states the pain is in the base of the great toe. Patient states the pain is a 10 out of 10. Patient states the pain is better with rest and worse with movement and palpation. Patient states he does not drink alcohol but has been eating a lot of barbecue on pork lately. Patient denies fever and chills. Patient denies redness at the site. Patient denies chest pain or shortness of breath. Patient denies cough. Patient denies recent travel. Patient denies recent international travel. Patient denies exposure to the novel coronavirus. Patient denies sick contacts. Patient denies fever and chills. Patient denies cough. Patient denies diarrhea. Patient denies coming in contact with anybody with symptoms of the novel coronavirus. -: Sudden Injury: Toes: Left Type of Injury: other (Patient denies trauma or injury.) Place: home Severity: severe Severity scale (0 -10): 10 Improves With: rest Worsens With: weight bearing, movement, palpation Associated Symptoms: swelling, able to partially bear weight. denies: snap/pop sensation, numbness, tingling, ambulatory - Related Data Previous Rx's Medication Instructions Recorded Last Taken Type Albuterol Mdi (or & Nicu Only) 2 puff IH QID PRN #1 inhalation 03/12/17 Unknown Rx [ProAir HFA Inhaler] predniSONE [Deltasone] 40 mg PO QDAY #7 tab 03/12/17 Unknown Rx Amoxicillin/Potassium Clav 1 each PO BID #20 tablet 07/22/18 Unknown Rx [Augmentin 875-125 Tablet] predniSONE [Deltasone] 50 mg PO QDAY #5 tab 07/22/18 Unknown Rx Amoxicillin [Amoxicillin TAB] 875 mg PO BID 10 Days #20 tablet 06/14/19 Unknown Rx ALBUTEROL NEB's [Proventil 0.083% 2.5 mg IH TID PRN #45 ml 11/29/19 Unknown Rx NEBS] Albuterol Mdi (or & Nicu Only) 1 puff IH Q4-6H PRN #1 inha 11/29/19 Unknown Rx [ProAir HFA Inhaler] Azithromycin [Zithromax Z-RE] 250 mg PO DAILY #6 tablet 11/29/19 Unknown Rx Nebulizer and Compressor 1 each MC PRN #1 each 11/29/19 Unknown Rx [Devilbiss Pulmoneb Lt Comp-Neb] Acetaminophen/Codeine [Tylenol 1 tab PO Q6H PRN #10 tab 02/05/20 Unknown Rx /Codeine # 3 tab] Colchicine 0.6 mg PO DAILY 10 Days #10 capsule 02/05/20 Unknown Rx Prednisone [predniSONE 10 mg 10 mg PO .TAPER #21 tab.ds.pk 02/05/20 Unknown Rx (6-Day Pack, 21 Tabs)] Allergies Allergy/AdvReac Type Severity Reaction Status Date / Time No Known Allergies Allergy Unverified 12/29/12 23:32 ED Review of Systems ROS: Stated complaint: lt toe pains Other details as noted in HPI Constitutional: denies: chills, fever Eyes: denies: eye pain, eye discharge, vision change ENT: denies: ear pain, throat pain Respiratory: denies: cough, shortness of breath, wheezing Cardiovascular: denies: chest pain, palpitations Endocrine: no symptoms reported Gastrointestinal: denies: abdominal pain, nausea, diarrhea Genitourinary: denies: urgency, dysuria Musculoskeletal: denies: back pain, joint swelling, arthralgia Skin: denies: rash, lesions Neurological: denies: headache, weakness, paresthesias Psychiatric: denies: anxiety, depression Hematological/Lymphatic: denies: easy bleeding, easy bruising ED Past Medical Hx - Past Medical History Previous Medical History?: Yes Hx Asthma: Yes Additional medical history: sleep apnea, Bronchitis - Surgical History Past Surgical History?: No - Family History Family history: no significant - Social History Smoking Status: Never Smoker Substance Use Type: None - Medications Home Medications: Home Medications Medication Instructions Recorded Confirmed Last Taken Type Albuterol Mdi (or & Nicu Only) 2 puff IH QID PRN #1 inhalation 03/12/17 Unknown Rx [ProAir HFA Inhaler] predniSONE [Deltasone] 40 mg PO QDAY #7 tab 03/12/17 Unknown Rx Amoxicillin/Potassium Clav 1 each PO BID #20 tablet 07/22/18 Unknown Rx [Augmentin 875-125 Tablet] predniSONE [Deltasone] 50 mg PO QDAY #5 tab 07/22/18 Unknown Rx Amoxicillin [Amoxicillin TAB] 875 mg PO BID 10 Days #20 tablet 06/14/19 Unknown Rx ALBUTEROL NEB's [Proventil 0.083% 2.5 mg IH TID PRN #45 ml 11/29/19 Unknown Rx NEBS] Albuterol Mdi (or & Nicu Only) 1 puff IH Q4-6H PRN #1 inha 11/29/19 Unknown Rx [ProAir HFA Inhaler] Azithromycin [Zithromax Z-RE] 250 mg PO DAILY #6 tablet 11/29/19 Unknown Rx Nebulizer and Compressor 1 each MC PRN #1 each 11/29/19 Unknown Rx [Devilbiss Pulmoneb Lt Comp-Neb] Acetaminophen/Codeine [Tylenol 1 tab PO Q6H PRN #10 tab 02/05/20 Unknown Rx /Codeine # 3 tab] Colchicine 0.6 mg PO DAILY 10 Days #10 capsule 02/05/20 Unknown Rx Prednisone [predniSONE 10 mg 10 mg PO .TAPER #21 tab.ds.pk 02/05/20 Unknown Rx (6-Day Pack, 21 Tabs)] ED Physical Exam - General Limitations: No Limitations General appearance: alert, in no apparent distress - Head Head exam: Present: atraumatic, normocephalic - Eye Eye exam: Present: normal appearance - ENT ENT exam: Present: mucous membranes moist - Neck Neck exam: Present: normal inspection - Respiratory Respiratory exam: Present: normal lung sounds bilaterally. Absent: respiratory distress - Cardiovascular Cardiovascular Exam: Present: regular rate, normal rhythm. Absent: systolic murmur, diastolic murmur, rubs, gallop - GI/Abdominal GI/Abdominal exam: Present: soft, normal bowel sounds - Rectal Rectal exam: Present: deferred - Extremities Exam Extremities exam: Present: normal inspection - Back Exam Back exam: Present: normal inspection - Neurological Exam Neurological exam: Present: alert, oriented X3 - Psychiatric Psychiatric exam: Present: normal affect, normal mood - Skin Skin exam: Present: warm, dry, intact, normal color. Absent: rash ED Course Vital Signs 02/05/20 01:51 Temperature 98.3 F Pulse Rate 93 H Respiratory 18 Rate Blood Pressure 140/79 O2 Sat by Pulse 96 Oximetry - Reevaluation(s) Reevaluation #1: I discussed all results and clinical findings with patient. I discussed plan of care with patient. Patient agrees with plan of care. Patient is stable for discharge. Patient will be discharged home. Patient given discharge instructions. Patient voiced understanding of discharge instructions. 02/05/20 06:01 ED Lower Extremity MDM - Lab Data Result diagrams: 02/05/20 03:54 02/05/20 03:54 - Radiology Data Radiology results: report reviewed, image reviewed interpreted by me: Foot x-ray:, no foreign body, no osseous findings, no acute findings LEFT FOOT 3 VIEWS INDICATION / CLINICAL INFORMATION: left great toe pain COMPARISON: None available. FINDINGS: BONES / JOINT(S): No acute fracture or subluxation. No significant arthritis. No erosions are seen. SOFT TISSUES: No significant abnormality. ADDITIONAL FINDINGS: None. ... - Medical Decision Making Patient is a 29-year-old male that presents emergency room with complaints of pain at the left great toe MTP. Clinical findings are consistent with gout. Patient denies trauma. No cellulitis noted. Patient had labs done which were unremarkable. Patient given Solu-Medrol in the ER and his pain improved. Patient stable for discharge. Patient discharged home with prescriptions. Patient instructed to eat a gout diet and a low uric acid diet. - Differential Diagnosis Gout, toe sprain, toe pain, Critical care attestation.: If time is entered above; I have spent that time in minutes in the direct care of this critically ill patient, excluding procedure time. ED Disposition Clinical Impression: Great toe pain Qualifiers: Laterality: left Qualified Code(s): M79.675 - Pain in left toe(s) Gout attack Qualifiers: Gout site: toe Gout etiology: unspecified cause Laterality: left Qualified Code(s): M10.9 - Gout, unspecified Disposition: - TO HOME OR SELFCARE Is pt being admited?: No Does the pt Need Aspirin: No Condition: Stable Instructions: Acute Gouty Arthritis (ED) Additional Instructions: Patient to follow-up with primary care in 2 to 3 days. Patient to follow-up with orthopedist in 2 to 3 days. Patient to rest. Patient to increase water. Patient to avoid strenuous exercise or heavy lifting until cleared by orthopedist. Patient to eat a gout diet. Patient to take Tylenol or ibuprofen as needed for pain. Patient to take meds as directed. Patient to return to the ER if condition worsens, changes or new symptoms arise. Prescriptions: Colchicine 0.6 mg PO DAILY 10 Days #10 capsule Prednisone [predniSONE 10 mg (6-Day Pack, 21 Tabs)] 10 mg PO .TAPER #21 tab.ds.pk Acetaminophen/Codeine [Tylenol /Codeine # 3 tab] 1 tab PO Q6H PRN #10 tab PRN Reason: Pain , Severe (7-10) Referrals: PRIMARY CAREMD [Primary Care Provider] - 2-3 Days FRANC GARZA MD [Staff Physician] - 2-3 Days Time of Disposition: 05:27
[2020-02-05 04:23] LABS: Hematocrit 39.5 % (35.5-45.6); Hemoglobin 13.9 gm/dl (11.8-15.2); Mean Corpuscular HGB Conc 35 % (32-34); Mean Corpuscular Volume 86 fl (84-94); Platelet Count 238 K/mm3 (140-440); Red Blood Count 4.61 M/mm3 (3.65-5.03); Red Cell Distribution Width 13.3 % (13.2-15.2)
[2020-02-05 04:32] LABS: Alanine Aminotransferase 41 units/L (7-56); Albumin 4.9 g/dL (3.9-5); BUN/Creatinine Ratio 11; Blood Urea Nitrogen 12 mg/dL (9-20); Calcium 10.2 mg/dL (8.4-10.2); Hemolysis Index 14
[2020-02-05 06:03] VITALS: BP 130/82
[2020-02-05 06:50] LABS: Uric Acid 9.8 mg/dL (3.5-7.6)
== END 2020-02-05 05:46 | disposition home or self-care (01) ==
LOC: ED 00:09
DX: M10.9 Gout, unspecified (principal); M79.675 Pain in left toe(s); J45.909 Unspecified asthma, uncomplicated; Z79.899 Other long term (current) drug therapy
CPT/HCPCS: 36415; 73630; 80053; 84550; 85027; 96372; 99284; J2930

== ENCOUNTER 2021-04-02 00:11 | Emergency (ER) | payer SELFPAY ==
[2021-04-02] MEDS ORDERED: SODIUM CHLORIDE 0.9% 1000 ML 1,000 ML IV ONE ×2 (00:33→04:10)
[2021-04-02] MEDS ORDERED: INSULIN REGULAR, HUMAN 100 UNITS/1 ML IV ONE ×2 (00:33→04:10)
--- NOTE | 2021-04-02 00:36 | Emergency Department Report ---
<JHON GRIFFIN - Last Filed: 04/02/21 00:33> ED General Adult HPI - General Chief complaint: Extremity Injury, Upper Stated complaint: LEFT ARM PAIN Time Seen by Provider: 04/02/21 00:32 Source: patient Mode of arrival: Ambulatory Limitations: No Limitations - History of Present Illness Initial comments: 30-year-old [place] male past medical history of diabetes and anxiety resents emerged department complaining of several day history of left upper extremity spasms/throbbing pain that radiates up and down to his neck off and on lasting fragments of 15 seconds at a time. States that he does experience some tingling to the right upper extremity as well but it is more prominent in the left upper extremity. Ports no shortness of breath, palpitations, fever, chills, sweats, chest pain, headaches -: Gradual Location: upper extremity Quality: aching, dull Consistency: constant Improves with: none Worsens with: none Associated Symptoms: denies: confusion, chest pain, diaphoresis, headaches, loss of appetite, malaise, rash, seizure Treatments Prior to Arrival: none - Related Data Previous Rx's Medication Instructions Recorded Last Taken Type Albuterol Mdi (or & Nicu Only) 2 puff IH QID PRN #1 inhalation 03/12/17 Unknown Rx [ProAir HFA Inhaler] predniSONE [Deltasone] 40 mg PO QDAY #7 tab 03/12/17 Unknown Rx Amoxicillin/Potassium Clav 1 each PO BID #20 tablet 07/22/18 Unknown Rx [Augmentin 875-125 Tablet] predniSONE [Deltasone] 50 mg PO QDAY #5 tab 07/22/18 Unknown Rx Amoxicillin [Amoxicillin TAB] 875 mg PO BID 10 Days #20 tablet 06/14/19 Unknown Rx ALBUTEROL NEB's [Proventil 0.083% 2.5 mg IH TID PRN #45 ml 11/29/19 Unknown Rx NEBS] Albuterol Mdi (or & Nicu Only) 1 puff IH Q4-6H PRN #1 inha 11/29/19 Unknown Rx [ProAir HFA Inhaler] Azithromycin [Zithromax Z-RE] 250 mg PO DAILY #6 tablet 11/29/19 Unknown Rx Nebulizer and Compressor 1 each MC PRN #1 each 11/29/19 Unknown Rx [Devilbiss Pulmoneb Lt Comp-Neb] Acetaminophen/Codeine [Tylenol 1 tab PO Q6H PRN #10 tab 02/05/20 Unknown Rx /Codeine # 3 tab] Colchicine 0.6 mg PO DAILY 10 Days #10 capsule 02/05/20 Unknown Rx Prednisone [predniSONE 10 mg 10 mg PO .TAPER #21 tab.ds.pk 02/05/20 Unknown Rx (6-Day Pack, 21 Tabs)] Insulin Aspart Prot/Insuln Asp 40 unit SQ BID #1 vial 04/02/21 Unknown Rx [Relion Novolog Mix 70-30 Vial] Metformin HCl [metFORMIN] 1,000 mg PO BID #60 tablet 04/02/21 Unknown Rx Allergies Allergy/AdvReac Type Severity Reaction Status Date / Time No Known Allergies Allergy Verified 04/02/21 00:20 ED Review of Systems Comment: All other systems reviewed and negative ED Past Medical Hx - Past Medical History Hx Diabetes: Yes Hx Asthma: Yes Additional medical history: sleep apnea, Bronchitis - Surgical History Past Surgical History?: No - Social History Smoking Status: Never Smoker Substance Use Type: None - Medications Home Medications: Home Medications Medication Instructions Recorded Confirmed Last Taken Type Albuterol Mdi (or & Nicu Only) 2 puff IH QID PRN #1 inhalation 03/12/17 Unknown Rx [ProAir HFA Inhaler] predniSONE [Deltasone] 40 mg PO QDAY #7 tab 03/12/17 Unknown Rx Amoxicillin/Potassium Clav 1 each PO BID #20 tablet 07/22/18 Unknown Rx [Augmentin 875-125 Tablet] predniSONE [Deltasone] 50 mg PO QDAY #5 tab 07/22/18 Unknown Rx Amoxicillin [Amoxicillin TAB] 875 mg PO BID 10 Days #20 tablet 06/14/19 Unknown Rx ALBUTEROL NEB's [Proventil 0.083% 2.5 mg IH TID PRN #45 ml 11/29/19 Unknown Rx NEBS] Albuterol Mdi (or & Nicu Only) 1 puff IH Q4-6H PRN #1 inha 11/29/19 Unknown Rx [ProAir HFA Inhaler] Azithromycin [Zithromax Z-RE] 250 mg PO DAILY #6 tablet 11/29/19 Unknown Rx Nebulizer and Compressor 1 each MC PRN #1 each 11/29/19 Unknown Rx [Devilbiss Pulmoneb Lt Comp-Neb] Acetaminophen/Codeine [Tylenol 1 tab PO Q6H PRN #10 tab 02/05/20 Unknown Rx /Codeine # 3 tab] Colchicine 0.6 mg PO DAILY 10 Days #10 capsule 02/05/20 Unknown Rx Prednisone [predniSONE 10 mg 10 mg PO .TAPER #21 tab.ds.pk 02/05/20 Unknown Rx (6-Day Pack, 21 Tabs)] Insulin Aspart Prot/Insuln Asp 40 unit SQ BID #1 vial 04/02/21 Unknown Rx [Relion Novolog Mix 70-30 Vial] Metformin HCl [metFORMIN] 1,000 mg PO BID #60 tablet 04/02/21 Unknown Rx ED Physical Exam - General Limitations: No Limitations General appearance: alert, in no apparent distress - Head Head exam: Present: atraumatic, normocephalic - Eye Eye exam: Present: normal appearance, PERRL, EOMI. Absent: scleral icterus, conjunctival injection Pupils: Present: normal accommodation - ENT ENT exam: Present: normal exam, normal orophraynx, mucous membranes moist, TM's normal bilaterally - Neck Neck exam: Present: normal inspection, full ROM - Respiratory Respiratory exam: Present: normal lung sounds bilaterally. Absent: respiratory distress, wheezes, rales, chest wall tenderness, accessory muscle use - Cardiovascular Cardiovascular Exam: Present: regular rate, normal rhythm. Absent: systolic murmur, diastolic murmur, rubs, gallop - GI/Abdominal GI/Abdominal exam: Present: soft, normal bowel sounds - Rectal Rectal exam: Present: deferred - Extremities Exam Extremities exam: Present: normal inspection, full ROM, normal capillary refill. Absent: tenderness, pedal edema, joint swelling, calf tenderness - Back Exam Back exam: Present: normal inspection. Absent: CVA tenderness (R), CVA tenderness (L) - Neurological Exam Neurological exam: Present: alert, oriented X3, CN II-XII intact, normal gait - Psychiatric Psychiatric exam: Present: normal affect, normal mood - Skin Skin exam: Present: warm, dry, intact, normal color. Absent: rash ED Disposition Clinical Impression: Hyperglycemia due to type 2 diabetes mellitus Disposition: HOME / SELF CARE / HOMELESS Condition: Stable Instructions: Diabetes Mellitus Type 2 in Adults (ED), Type 2 Diabetes Mellit us, Self Care, Adult, [id number], Hyperglycemia, [id number] Additional Instructions: It is very important you get compliant with your diabetes. Your placing yourself at risk for dialysis congestive heart failure amputations and . Is important to increase your water intake avoid sodas alcohol, high carbohydrate foods. Referring you to a primary care provider please call today to get an appointment for April. I have refilled your medications. Prescriptions: Metformin HCl [metFORMIN] 1,000 mg PO BID #60 tablet Insulin Aspart Prot/Insuln Asp [Relion Novolog Mix 70-30 Vial] 40 unit SQ BID #1 vial Referrals: PRIMARY CARE, [Primary Care Provider] - 3-5 Days SOPHIE VALDES MD [Staff Physician] - 3-5 Days AVERY HEATON MD [Staff Physician] - 3-5 Days Forms: Accompanied Note, Work/School Release Form(ED) <SHIRIN MARROQUINRaúl Ansari - Last Filed: 04/02/21 17:01> ED General Adult HPI - History of Present Illness Initial comments: Patient reevaluated by this provider. He reports that he has had diabetes type 2 is supposed to be on Metformin 1000 mg twice a day and 70 3040 mg twice a day. Patient states he is is noncompliant with his medication. He currently is out of his insulin. Patient does not have a primary care provider at this time. ED Review of Systems ROS: Stated complaint: LEFT ARM PAIN Other details as noted in HPI ED Physical Exam - General General appearance: alert, in no apparent distress - Head Head exam: Present: atraumatic, normocephalic - Eye Eye exam: Present: normal appearance Pupils: Present: normal accommodation - ENT ENT exam: Present: mucous membranes moist, normal external ear exam - Neck Neck exam: Present: normal inspection - Respiratory Respiratory exam: Present: normal lung sounds bilaterally. Absent: respiratory distress, accessory muscle use - Cardiovascular Cardiovascular Exam: Present: regular rate, normal rhythm. Absent: systolic murmur, diastolic murmur, rubs, gallop - GI/Abdominal GI/Abdominal exam: Present: soft, normal bowel sounds - Rectal Rectal exam: Present: deferred - Extremities Exam Extremities exam: Present: normal inspection - Back Exam Back exam: Present: normal inspection - Neurological Exam Neurological exam: Present: alert, oriented X3 - Psychiatric Psychiatric exam: Present: normal affect, normal mood - Skin Skin exam: Present: warm, dry, intact, normal color. Absent: rash ED Course Vital Signs 04/02/21 04/02/21 04/02/21 00:14 03:12 04:01 Temperature 98.3 F 98.3 F Pulse Rate 103 H 110 H 87 Respiratory 18 15 17 Rate Blood Pressure 114/63 Blood Pressure 119/79 107/68 [Right] O2 Sat by Pulse 97 100 90 Oximetry 04/02/21 04/02/21 04/02/21 04:31 05:31 06:15 Temperature Pulse Rate 84 87 82 Respiratory 11 L 16 15 Rate Blood Pressure 117/69 104/65 Blood Pressure [Right] O2 Sat by Pulse 99 96 97 Oximetry 04/02/21 06:45 Temperature Pulse Rate 77 Respiratory 14 Rate Blood Pressure 110/60 Blood Pressure [Right] O2 Sat by Pulse 96 Oximetry ED Medical Decision Making - Lab Data Result diagrams: 04/02/21 00:44 04/02/21 00:44 - Medical Decision Making Patient reevaluated by this provider. He reports that he has had diabetes type 2 is supposed to be on Metformin 1000 mg twice a day and 70 3040 mg twice a day. Patient states he is is noncompliant with his medication. He currently is out of his insulin. Patient does not have a primary care provider at this time. Patient was handed off to me by MARK Griffin. Patient comes in for what appears to be neuropathy of his shoulder and hands but is noncompliant on diabetes. Blood sugar was 846. Patient had 2 L of fluid 20 units of insulin. Patient's blood sugar now ready for discharge of 306. Discussed with patient to continue with his Metformin 1000 mg twice a day. Prescription for ReliOn insulin. Referral to a primary care provider. Critical care attestation.: If time is entered above; I have spent that time in minutes in the direct care of this critically ill patient, excluding procedure time. ED Disposition Is pt being admited?: No Does the pt Need Aspirin: No Time of Disposition: 08:08
[2021-04-02 01:19] LABS: Hematocrit 41.4 % (35.5-45.6); Hemoglobin 12.9 gm/dl (11.8-15.2); Mean Corpuscular HGB Conc 31 % (32-34); Mean Corpuscular Volume 78 fl (84-94); Platelet Count 367 K/mm3 (140-440); Red Blood Count 5.29 M/mm3 (3.65-5.03); Red Cell Distribution Width 16.9 % (13.2-15.2)
[2021-04-02 01:34] LABS: Alanine Aminotransferase 10 units/L (7-56); Albumin 3.8 g/dL (3.9-5); BUN/Creatinine Ratio 16; Blood Urea Nitrogen 14 mg/dL (9-20); Hemolysis Index 6
[2021-04-02 03:22] LABS: Band Neutrophils # (Manual) 0.2 K/mm3; Total Cells Counted 100
[2021-04-02 03:23] LABS: Large Platelets 2+; Platelet Estimate Consistent w Auto
[2021-04-02 04:58] LABS: Bilirubin,Urine NEG (Negative); Blood,Urine NEG (Negative); Color,Urine Colorless (Yellow); Mucus,Urine FEW /HPF; Protein,Urine <15 mg/dL mg/dL (Negative); Urobilinogen,Urine < 2.0 mg/dL (<2.0); WBC,Urine < 1.0 /HPF (0.0-6.0)
[2021-04-02 08:13] VITALS: BP 113/70
--- NOTE | 2021-04-03 10:19 | Electrocardiograph Report ---
[facility] Test Date: 2021-04-02 Test Time: 11:58:21 Pat Name: OLIVIER RING Department: Room: Gender: M Side Boss: AMANDA : 1990 Requested By: OWEN CABRAL Order Number: [id number] Reading MD: Kyrie Barcenas Measurements Intervals Maynard Rate: 77 P: 62 IN: 146 QRS: -25 QRSD: 84 T: 20 QT: 398 QTc: 449 Interpretive Statements Sinus rhythm nonspecific st-t No previous ECG available for comparison Electronically Signed On 04-03-2021 10:18:41 EST by Kyrie Barcenas
== END 2021-04-02 08:27 | disposition home or self-care (01) ==
LOC: ED 00:11
DX: E11.65 Type 2 diabetes mellitus with hyperglycemia (principal); M79.602 Pain in left arm
CPT/HCPCS: 36415; 80053; 81001; 82010; 82805; 82962; 85007; 85025; 93005; 96361; 96374; 96376; 99284; J7030; Q0162; Q9967; J1815

== ENCOUNTER 2021-07-30 22:20 | Emergency (ER) | payer SELFPAY ==
[2021-07-31] MEDS ORDERED: SODIUM CHLORIDE 0.9% 1000 ML 1,000 ML IV ONE ×2 (00:45→02:40)
[2021-07-31] MEDS ORDERED: MORPHINE 4 MG/1 ML INJ IV ONE (00:46)
[2021-07-31] MEDS ORDERED: ONDANSETRON 4 MG/2 ML INJ IV ONE (00:46)
[2021-07-31] MEDS ORDERED: INSULIN REGULAR, HUMAN 100 UNITS/1 ML IV ONE ×3 (00:46→05:01)
--- NOTE | 2021-07-31 00:50 | Emergency Department Report ---
ED General Adult HPI - General Chief complaint: Hyperglycemia Stated complaint: WEAK/COUGH/LUMPS ON RT NECK AND RT UNDERARM Time Seen by Provider: 07/31/21 00:27 Source: patient Mode of arrival: Wheelchair Limitations: No Limitations - History of Present Illness Initial comments: Patient is 30 years old male with history of insulin-dependent diabetes. Patient presented to the ER complaining of fever, generalized body ache and right neck swelling. He also reported that he has been having cough. Patient also stated that his blood sugar is really high. Patient denied any chest pain or shortness of breath. No focal weakness, numbness or tingling sensation. - Related Data Previous Rx's Medication Instructions Recorded Last Taken Type Albuterol Mdi (or & Nicu Only) 2 puff IH QID PRN #1 inhalation 03/12/17 Unknown Rx [ProAir HFA Inhaler] predniSONE [Deltasone] 40 mg PO QDAY #7 tab 03/12/17 Unknown Rx Amoxicillin/Potassium Clav 1 each PO BID #20 tablet 07/22/18 Unknown Rx [Augmentin 875-125 Tablet] predniSONE [Deltasone] 50 mg PO QDAY #5 tab 07/22/18 Unknown Rx Amoxicillin [Amoxicillin TAB] 875 mg PO BID 10 Days #20 tablet 06/14/19 Unknown Rx ALBUTEROL NEB's [Proventil 0.083% 2.5 mg IH TID PRN #45 ml 11/29/19 Unknown Rx NEBS] Albuterol Mdi (or & Nicu Only) 1 puff IH Q4-6H PRN #1 inha 11/29/19 Unknown Rx [ProAir HFA Inhaler] Azithromycin [Zithromax Z-RE] 250 mg PO DAILY #6 tablet 11/29/19 Unknown Rx Nebulizer and Compressor 1 each MC PRN #1 each 11/29/19 Unknown Rx [Devilbiss Pulmoneb Lt Comp-Neb] Acetaminophen/Codeine [Tylenol 1 tab PO Q6H PRN #10 tab 02/05/20 Unknown Rx /Codeine # 3 tab] Colchicine 0.6 mg PO DAILY 10 Days #10 capsule 02/05/20 Unknown Rx Prednisone [predniSONE 10 mg 10 mg PO .TAPER #21 tab.ds.pk 02/05/20 Unknown Rx (6-Day Pack, 21 Tabs)] Insulin Aspart Prot/Insuln Asp 40 unit SQ BID #1 vial 04/02/21 Unknown Rx [Relion Novolog Mix 70-30 Vial] Metformin HCl [metFORMIN] 1,000 mg PO BID #60 tablet 04/02/21 Unknown Rx Allergies Allergy/AdvReac Type Severity Reaction Status Date / Time No Known Allergies Allergy Verified 04/02/21 00:20 ED Review of Systems ROS: Stated complaint: WEAK/COUGH/LUMPS ON RT NECK AND RT UNDERARM Other details as noted in HPI Comment: All other systems reviewed and negative Constitutional: chills, fever Respiratory: cough. denies: shortness of breath, SOB with exertion, SOB at rest, wheezing Cardiovascular: palpitations. denies: chest pain Gastrointestinal: nausea, diarrhea. denies: abdominal pain, vomiting, constipation, hematemesis, hematochezia Musculoskeletal: denies: back pain Neurological: denies: headache, weakness, numbness, paresthesias, confusion, abnormal gait ED Past Medical Hx - Past Medical History Hx Diabetes: Yes Hx Asthma: Yes Additional medical history: sleep apnea, Bronchitis - Social History Smoking Status: Never Smoker Substance Use Type: None - Medications Home Medications: Home Medications Medication Instructions Recorded Confirmed Last Taken Type Albuterol Mdi (or & Nicu Only) 2 puff IH QID PRN #1 inhalation 03/12/17 Unknown Rx [ProAir HFA Inhaler] predniSONE [Deltasone] 40 mg PO QDAY #7 tab 03/12/17 Unknown Rx Amoxicillin/Potassium Clav 1 each PO BID #20 tablet 07/22/18 Unknown Rx [Augmentin 875-125 Tablet] predniSONE [Deltasone] 50 mg PO QDAY #5 tab 07/22/18 Unknown Rx Amoxicillin [Amoxicillin TAB] 875 mg PO BID 10 Days #20 tablet 06/14/19 Unknown Rx ALBUTEROL NEB's [Proventil 0.083% 2.5 mg IH TID PRN #45 ml 11/29/19 Unknown Rx NEBS] Albuterol Mdi (or & Nicu Only) 1 puff IH Q4-6H PRN #1 inha 11/29/19 Unknown Rx [ProAir HFA Inhaler] Azithromycin [Zithromax Z-RE] 250 mg PO DAILY #6 tablet 11/29/19 Unknown Rx Nebulizer and Compressor 1 each MC PRN #1 each 11/29/19 Unknown Rx [Devilbiss Pulmoneb Lt Comp-Neb] Acetaminophen/Codeine [Tylenol 1 tab PO Q6H PRN #10 tab 02/05/20 Unknown Rx /Codeine # 3 tab] Colchicine 0.6 mg PO DAILY 10 Days #10 capsule 02/05/20 Unknown Rx Prednisone [predniSONE 10 mg 10 mg PO .TAPER #21 tab.ds.pk 02/05/20 Unknown Rx (6-Day Pack, 21 Tabs)] Insulin Aspart Prot/Insuln Asp 40 unit SQ BID #1 vial 04/02/21 Unknown Rx [Relion Novolog Mix 70-30 Vial] Metformin HCl [metFORMIN] 1,000 mg PO BID #60 tablet 04/02/21 Unknown Rx ED Physical Exam - General Limitations: No Limitations General appearance: alert, in no apparent distress - Head Head exam: Present: atraumatic, normocephalic, normal inspection - ENT ENT exam: Present: mucous membranes dry - Neck Neck exam: Present: lymphadenopathy, other (Right neck lump, 3 x 3 cm.) - Respiratory Respiratory exam: Present: normal lung sounds bilaterally. Absent: respiratory distress, wheezes, rales - Cardiovascular Cardiovascular Exam: Present: regular rate, tachycardia - GI/Abdominal GI/Abdominal exam: Present: soft, normal bowel sounds. Absent: distended, tenderness, guarding, rebound, rigid, organomegaly, mass, bruit, pulsatile mass, hernia - Extremities Exam Extremities exam: Present: normal inspection, full ROM, normal capillary refill. Absent: tenderness - Back Exam Back exam: Present: normal inspection, full ROM. Absent: CVA tenderness (R), CVA tenderness (L) - Neurological Exam Neurological exam: Present: alert, oriented X3, CN II-XII intact, normal gait, reflexes normal. Absent: motor sensory deficit - Psychiatric Psychiatric exam: Present: normal mood - Skin Skin exam: Present: warm, intact, normal color ED Course Vital Signs 07/30/21 07/31/21 07/31/21 22:27 01:38 01:46 Temperature 100.3 F H Pulse Rate 126 H 96 H Respiratory 18 15 Rate Blood Pressure 119/67 Blood Pressure 124/68 [Left] O2 Sat by Pulse 95 96 99 Oximetry 07/31/21 07/31/21 07/31/21 01:55 02:01 02:29 Temperature Pulse Rate 92 H 92 H 96 H Respiratory 13 20 Rate Blood Pressure Blood Pressure [Left] O2 Sat by Pulse 98 97 Oximetry ED Medical Decision Making - Lab Data Result diagrams: 07/31/21 00:53 07/31/21 00:53 - EKG Data -: EKG Interpreted by Me EKG shows normal: sinus rhythm Rate: normal - EKG Data Interpretation: no acute changes - Radiology Data Radiology results: report reviewed - Medical Decision Making Patient is 30 years old male with history of insulin-dependent diabetes. Patient presented to the ER complaining of fever, generalized body ache and right neck swelling. He also reported that he has been having cough. Patient also stated that his blood sugar is really high. Patient denied any chest pain or shortness of breath. No focal weakness, numbness or tingling sensation. Patient received normal saline and multiple doses of insulin. Labs reviewed and showed blood glucose of more than 500. CT neck with IV contrast showed a large lymph node concerning for lymphoma. I informed the patient and his family who are available in the room about the diagnosis and the need to follow-up with a key sander soon as possible for further management including biopsy. Both family and patient understood the seriousness of this CT finding. I gave patient and his family Dr. Mosher to follow-up with us. Critical care attestation.: If time is entered above; I have spent that time in minutes in the direct care of this critically ill patient, excluding procedure time. ED Disposition Clinical Impression: Acute hyperglycemia, Solitary mass of neck with fever, Lymphoma Disposition: 01 HOME / SELF CARE / HOMELESS Is pt being admited?: No Condition: Stable Instructions: Hyperglycemia Referrals: PRIMARY CAREMD [Primary Care Provider] - 3-5 Days EULA MOSHER MD [Staff Physician] - 3-5 Days
--- NOTE | 2021-07-31 01:14 | XRay Report ---
CHEST 1 VIEW INDICATION / CLINICAL INFORMATION: Lightheadedness/Dizziness. FINDINGS: SUPPORT DEVICES: None. HEART / MEDIASTINUM: No significant abnormality. LUNGS / PLEURA: No significant pulmonary or pleural abnormality. No pneumothorax. ADDITIONAL FINDINGS: No significant additional findings. IMPRESSION: 1. No acute findings. Signer Name: Gabriele Collier MD Signed: 07/31/2021 1:10 AM Workstation Name: [id number]
[2021-07-31 01:38] LABS: Hematocrit 31.3 % (35.5-45.6); Hemoglobin 9.9 gm/dl (11.8-15.2); Mean Corpuscular HGB Conc 32 % (32-34); Mean Corpuscular Volume 75 fl (84-94); Platelet Count 417 K/mm3 (140-440); Red Blood Count 4.18 M/mm3 (3.65-5.03); Red Cell Distribution Width 18.4 % (13.2-15.2)
[2021-07-31 02:02] LABS: Alanine Aminotransferase 7 units/L (7-56); Albumin 2.8 g/dL (3.9-5); Blood Urea Nitrogen 14 mg/dL (9-20); Calcium 9.1 mg/dL (8.4-10.2); Hemolysis Index 4
[2021-07-31 02:19] LABS: Bilirubin,Urine NEG (Negative); Blood,Urine NEG (Negative); Color,Urine Straw (Yellow); Mucus,Urine FEW /HPF; Protein,Urine <15 mg/dL mg/dL (Negative); Urobilinogen,Urine < 2.0 mg/dL (<2.0)
[2021-07-31 02:22] LABS: RBC,Urine < 1.0 /HPF (0.0-6.0)
[2021-07-31 02:25] LABS: BUN/Creatinine Ratio 20; Bilirubin,Direct < 0.2 mg/dL (0-0.2)
--- NOTE | 2021-07-31 03:33 | Cat Scan Report ---
CT NECK 07/31/2021 HISTORY: Lumps on RIGHT sided neck and RIGHT sided underarm. FINDINGS: Contrast-enhanced CT images of the soft tissues of the neck were obtained. On an emergency basis. There is diffuse abnormal cervical adenopathy extending from the jugulodigastric region down to the t horacic inlet, with abnormal adenopathy is suspected in the upper mediastinum. Prominent nodes are pr esent in the right supraclavicular region. The largest abnormal lymph node is a right sided level 2 node, with a maximum diameter of approximate ly 5.4 cm. The overall appearance is worrisome for lymphoma. There is no evidence of inflammation or abscess. There is no evidence of airway compression. IMPRESSION: 1. No evidence of acute abnormality. 2. Extensive significant cervical adenopathy, right greater than left., suspicious for lymphoma. Cerv ical nodes would be amenable to image guided biopsy, if necessary. All CT scans at this location are performed using dose reduction to ALARA by means of automated expos ure control. Signer Name: Gene Cooper MD Signed: 07/31/2021 3:28 AM Workstation Name: [id number]
[2021-07-31 04:17] LABS: Basophils % (Manual) 0 % (0.0-1.8); Hypochromasia 1+; Total Cells Counted 100
[2021-07-31 04:18] LABS: Large Platelets 1+; Platelet Estimate Consistent w Auto
[2021-07-31 05:57] VITALS: BP 118/57
--- NOTE | 2021-08-02 19:55 | Electrocardiograph Report ---
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
== END 2021-07-31 06:06 | disposition home or self-care (01) ==
LOC: ED 22:20
DX: E11.65 Type 2 diabetes mellitus with hyperglycemia (principal); R22.1 Localized swelling, mass and lump, neck; C85.90 Non-Hodgkin lymphoma, unspecified, unspecified site; J45.909 Unspecified asthma, uncomplicated
CPT/HCPCS: 36415; 70491; 71045; 80048; 80076; 81001; 82140; 82962; 84484; 85007; 85025; 93005; 96361; 96374; 96375; 96376; 99285; J2270; J2405; J7030; Q9967; Q0162; J1815

== ENCOUNTER 2021-08-02 14:25 | Emergency (ER) | payer SELFPAY ==
[2021-08-02] MEDS ORDERED: SODIUM CHLORIDE 0.9% 1000 ML 1,000 ML IV ONE (14:41)
[2021-08-02 16:20] LABS: Bilirubin,Urine NEG (Negative); Blood,Urine NEG (Negative); Color,Urine Straw (Yellow); Mucus,Urine FEW /HPF; Protein,Urine <15 mg/dL mg/dL (Negative); RBC,Urine < 1.0 /HPF (0.0-6.0); Urobilinogen,Urine < 2.0 mg/dL (<2.0)
[2021-08-02 17:53] LABS: Hematocrit 29.2 % (35.5-45.6); Hemoglobin 9.5 gm/dl (11.8-15.2); Mean Corpuscular HGB Conc 33 % (32-34); Mean Corpuscular Volume 74 fl (84-94); Platelet Count 389 K/mm3 (140-440); Red Blood Count 3.93 M/mm3 (3.65-5.03); Red Cell Distribution Width 18.1 % (13.2-15.2)
[2021-08-02 18:06] LABS: Alanine Aminotransferase 7 units/L (7-56); Albumin 2.6 g/dL (3.9-5); Blood Urea Nitrogen 9 mg/dL (9-20); Calcium 8.4 mg/dL (8.4-10.2); Hemolysis Index 4
--- NOTE | 2021-08-02 18:28 | Emergency Department Report ---
ED General Adult HPI - General Chief complaint: Hyperglycemia Stated complaint: HIGH BLOOD SUGAR Source: patient Mode of arrival: Ambulatory Limitations: No Limitations - History of Present Illness Initial comments: 30-year-old male with recent diagnosis of lymphoma who has history of diabetes currently on 70/30 insulin and Metformin twice a day who now presents with generalized malaise. Patient reported that his blood sugar was recorded high on his glucometer. Patient was seen in the emergency room couple of days ago where he has a complete work-up done including CT scan and extensive laboratory work- up that shows abnormal white count. He was also noted to have lymphadenitis on his right neck. He was sent to oncology who diagnosed him with lymphoma and planning to have biopsy done today. When he visited with his oncology they noticed that his blood sugar was high and was told that they could not do a biopsy today until he was able to get his blood sugar under control. On presentation to the emergency room his blood sugar was noted to be above 400. Patient reports nausea without emesis. No other modifying or associated symptoms reported. - Related Data Previous Rx's Medication Instructions Recorded Last Taken Type Albuterol Mdi (or & Nicu Only) 2 puff IH QID PRN #1 inhalation 03/12/17 Unknown Rx [ProAir HFA Inhaler] predniSONE [Deltasone] 40 mg PO QDAY #7 tab 03/12/17 Unknown Rx Amoxicillin/Potassium Clav 1 each PO BID #20 tablet 07/22/18 Unknown Rx [Augmentin 875-125 Tablet] predniSONE [Deltasone] 50 mg PO QDAY #5 tab 07/22/18 Unknown Rx Amoxicillin [Amoxicillin TAB] 875 mg PO BID 10 Days #20 tablet 06/14/19 Unknown Rx ALBUTEROL NEB's [Proventil 0.083% 2.5 mg IH TID PRN #45 ml 11/29/19 Unknown Rx NEBS] Albuterol Mdi (or & Nicu Only) 1 puff IH Q4-6H PRN #1 inha 11/29/19 Unknown Rx [ProAir HFA Inhaler] Azithromycin [Zithromax Z-RE] 250 mg PO DAILY #6 tablet 11/29/19 Unknown Rx Nebulizer and Compressor 1 each MC PRN #1 each 11/29/19 Unknown Rx [Devilbiss Pulmoneb Lt Comp-Neb] Acetaminophen/Codeine [Tylenol 1 tab PO Q6H PRN #10 tab 02/05/20 Unknown Rx /Codeine # 3 tab] Colchicine 0.6 mg PO DAILY 10 Days #10 capsule 02/05/20 Unknown Rx Prednisone [predniSONE 10 mg 10 mg PO .TAPER #21 tab.ds.pk 02/05/20 Unknown Rx (6-Day Pack, 21 Tabs)] Insulin Aspart Prot/Insuln Asp 40 unit SQ BID #1 vial 04/02/21 Unknown Rx [Relion Novolog Mix 70-30 Vial] Metformin HCl [metFORMIN] 1,000 mg PO BID #60 tablet 04/02/21 Unknown Rx Insulin NPH Hum/Reg Insulin Hm 40 unit SQ BID #3 vial 07/31/21 Unknown Rx [HumuLIN 70-30 Vial] Ondansetron [Zofran Odt] 4 mg PO Q8HR PRN #14 tab.rapdis 07/31/21 Unknown Rx traMADoL [Ultram 50 MG tab] 50 mg PO Q4HR PRN #14 tablet 07/31/21 Unknown Rx Allergies Allergy/AdvReac Type Severity Reaction Status Date / Time apple Allergy Itching Verified 08/02/21 14:31 peanut Allergy Itching Verified 08/02/21 14:31 ED Review of Systems ROS: Stated complaint: HIGH BLOOD SUGAR Other details as noted in HPI Comment: All other systems reviewed and negative Constitutional: malaise Endocrine: increased thirst Gastrointestinal: nausea. denies: abdominal pain, vomiting ED Past Medical Hx - Past Medical History Previous Medical History?: Yes Hx Diabetes: Yes Hx Asthma: Yes Additional medical history: sleep apnea, Bronchitis, lymphoma - Surgical History Past Surgical History?: No - Social History Smoking Status: Never Smoker Substance Use Type: None - Medications Home Medications: Home Medications Medication Instructions Recorded Confirmed Last Taken Type Albuterol Mdi (or & Nicu Only) 2 puff IH QID PRN #1 inhalation 03/12/17 Unknown Rx [ProAir HFA Inhaler] predniSONE [Deltasone] 40 mg PO QDAY #7 tab 03/12/17 Unknown Rx Amoxicillin/Potassium Clav 1 each PO BID #20 tablet 07/22/18 Unknown Rx [Augmentin 875-125 Tablet] predniSONE [Deltasone] 50 mg PO QDAY #5 tab 07/22/18 Unknown Rx Amoxicillin [Amoxicillin TAB] 875 mg PO BID 10 Days #20 tablet 06/14/19 Unknown Rx ALBUTEROL NEB's [Proventil 0.083% 2.5 mg IH TID PRN #45 ml 11/29/19 Unknown Rx NEBS] Albuterol Mdi (or & Nicu Only) 1 puff IH Q4-6H PRN #1 inha 11/29/19 Unknown Rx [ProAir HFA Inhaler] Azithromycin [Zithromax Z-RE] 250 mg PO DAILY #6 tablet 11/29/19 Unknown Rx Nebulizer and Compressor 1 each MC PRN #1 each 11/29/19 Unknown Rx [Devilbiss Pulmoneb Lt Comp-Neb] Acetaminophen/Codeine [Tylenol 1 tab PO Q6H PRN #10 tab 02/05/20 Unknown Rx /Codeine # 3 tab] Colchicine 0.6 mg PO DAILY 10 Days #10 capsule 02/05/20 Unknown Rx Prednisone [predniSONE 10 mg 10 mg PO .TAPER #21 tab.ds.pk 02/05/20 Unknown Rx (6-Day Pack, 21 Tabs)] Insulin Aspart Prot/Insuln Asp 40 unit SQ BID #1 vial 04/02/21 Unknown Rx [Relion Novolog Mix 70-30 Vial] Metformin HCl [metFORMIN] 1,000 mg PO BID #60 tablet 04/02/21 Unknown Rx Insulin NPH Hum/Reg Insulin Hm 40 unit SQ BID #3 vial 07/31/21 Unknown Rx [HumuLIN 70-30 Vial] Ondansetron [Zofran Odt] 4 mg PO Q8HR PRN #14 tab.rapdis 07/31/21 Unknown Rx traMADoL [Ultram 50 MG tab] 50 mg PO Q4HR PRN #14 tablet 07/31/21 Unknown Rx ED Physical Exam - General Limitations: No Limitations General appearance: alert, in no apparent distress - Head Head exam: Present: normal inspection - Eye Eye exam: Present: normal appearance Pupils: Present: normal accommodation - ENT ENT exam: Present: other (Right neck lymphadenopathy) - Neck Neck exam: Present: lymphadenopathy (Left lateral lymphadenopathy) - Respiratory Respiratory exam: Present: normal lung sounds bilaterally. Absent: respiratory distress, accessory muscle use - Cardiovascular Cardiovascular Exam: Present: regular rate, normal rhythm, normal heart sounds - GI/Abdominal GI/Abdominal exam: Present: soft, normal bowel sounds. Absent: distended, tenderness - Extremities Exam Extremities exam: Present: normal inspection, full ROM, normal capillary refill - Back Exam Back exam: Present: normal inspection. Absent: tenderness, CVA tenderness (R), CVA tenderness (L) - Neurological Exam Neurological exam: Present: alert, oriented X3 - Psychiatric Psychiatric exam: Present: normal affect, normal mood - Skin Skin exam: Present: warm, normal color ED Course Vital Signs 08/02/21 08/02/21 14:29 20:42 Temperature 98.5 F Pulse Rate 118 H Respiratory 18 Rate Blood Pressure 115/63 O2 Sat by Pulse 96 97 Oximetry - Reevaluation(s) Reevaluation #1: 08/02/21 18:30 Here with generalized malaise and elevated blood sugar--400 mg/dL on presentation we will go ahead and start patient on IV hydration and give 10 units of insulin IV and 10 units of insulin subcu--and check CBC, CMP, urinalysis for any infectious process or electrolyte abnormality. Will not repeat any imaging at this point. Reevaluation #2: 08/02/21 20:42 Pt reports feeling much better after his treatment with ivf ns 2 L bolus with 20 units of insulin total. Labs noted with mild anemia which he his aware off. He blood sugar is rechecked to be 245mg/dl. Pt is already established with Oncology so will d/c home to continue his current medical management with close follow up with his Oncologist for his procedure. I spent time to explain to this patient to be complaints with his medication to help his symptoms and overall health. He voice understanding and agreed with the plan. ED Medical Decision Making - Lab Data Result diagrams: 08/02/21 17:26 08/02/21 17:26 - Medical Decision Making This patient hypoglycemia is likely in part due to a lot of stress that this pat ient is going through at this point coupled with no compliant that reported not to have been taking his medicine as issue. Critical care attestation.: If time is entered above; I have spent that time in minutes in the direct care of this critically ill patient, excluding procedure time. ED Disposition Clinical Impression: Lymphadenopathy of head and neck, Hyperglycemia Anemia Qualifiers: Anemia type: unspecified type Qualified Code(s): D64.9 - Anemia, unspecified Disposition: 01 HOME / SELF CARE / HOMELESS Is pt being admited?: No Does the pt Need Aspirin: No Condition: Stable Instructions: Lymphadenopathy, Hyperglycemia, [id number] Additional Instructions: Increase your daily fluid to help your hydration It is very very important that you take your diabetes medication to help your blood sugar and your overall health Call follow-up with your oncology as planned so you could have your procedure done sooner than later Please denies it to call or return to emergency room if your symptoms worsen Referrals: PRIMARY CARE, [Primary Care Provider] - 3-5 Days Time of Disposition: 20:47
[2021-08-02 18:32] LABS: BUN/Creatinine Ratio 18
[2021-08-02] MEDS ORDERED: INSULIN REGULAR, HUMAN 100 UNITS/1 ML IV ONE (18:33)
[2021-08-02] MEDS ORDERED: INSULIN REGULAR, HUMAN 100 UNITS/1 ML SUB-Q ONE (18:33)
[2021-08-02 18:41] LABS: Anisocytosis 1+; Basophils % (Manual) 0 % (0.0-1.8); Hypochromasia 1+; Platelet Estimate Consistent w Auto; Total Cells Counted 100
[2021-08-02 21:33] VITALS: BP 115/64
== END 2021-08-02 21:13 | disposition home or self-care (01) ==
LOC: ED 14:25
DX: E11.65 Type 2 diabetes mellitus with hyperglycemia (principal); D64.9 Anemia, unspecified; R59.1 Generalized enlarged lymph nodes; J45.909 Unspecified asthma, uncomplicated; G47.30 Sleep apnea, unspecified; Z91.018 Allergy to other foods; Z79.899 Other long term (current) drug therapy
CPT/HCPCS: 36415; 80053; 81001; 82010; 82140; 82805; 82962; 84484; 85007; 85025; 96361; 96372; 96374; 99283; Q9967; J1815

== ENCOUNTER 2021-12-02 12:30 | Emergency (ER) | payer SELFPAY ==
[2021-12-02 14:04] LABS: Mean Corpuscular HGB Conc 31 % (32-34); Mean Corpuscular Volume 75 fl (84-94); Platelet Count 153 K/mm3 (140-440); Red Blood Count 5.48 M/mm3 (3.65-5.03)
[2021-12-02 14:07] LABS: Hematocrit 41.1 % (35.5-45.6); Hemoglobin 12.6 gm/dl (11.8-15.2); Red Cell Distribution Width 22.2 % (13.2-15.2)
--- NOTE | 2021-12-02 15:47 | Emergency Department Report ---
HPI - General Chief Complaint: Allergic Reaction Time Seen by Provider: 12/02/21 15:16 - HPI HPI: 31-year-old male with a past medical history of diabetes (on insulin and pills), eczema asthma, sleep apnea, Hodgkin's lymphoma currently on chemo presents to the hospital complaining of allergic reaction hypokalemia. Patient received his second round of chemotherapy 2 days ago and developed a diffuse papular pruritic rash that has been progressively worsening since receiving chemo. Patient states with his first dose of chemo he was pretreated with Benadryl and did not receive a dose of Benadryl prior to the second round of chemo. Patient denies shortness of breath, wheezing, tongue, or throat swelling. Patient states that he received a call from his doctor today to his potassium was 1.9 and he did go to the ER for evaluation. Patient denies diuretic use or any previous history of hypokalemia. ED Past Medical Hx - Past Medical History Previous Medical History?: Yes Hx Diabetes: Yes Hx Asthma: Yes Additional medical history: sleep apnea, Bronchitis, lymphoma - Surgical History Past Surgical History?: Yes Additional Surgical History: Right chest port, Neck biopsy - Social History Smoking Status: Current Some Day Smoker Substance Use Type: Marijuana - Medications Home Medications: Home Medications Medication Instructions Recorded Confirmed Last Taken Type Albuterol Mdi (or & Nicu Only) 2 puff IH QID PRN #1 inhalation 03/12/17 Unknown Rx [ProAir HFA Inhaler] predniSONE [Deltasone] 40 mg PO QDAY #7 tab 03/12/17 Unknown Rx Amoxicillin/Potassium Clav 1 each PO BID #20 tablet 07/22/18 Unknown Rx [Augmentin 875-125 Tablet] predniSONE [Deltasone] 50 mg PO QDAY #5 tab 07/22/18 Unknown Rx Amoxicillin [Amoxicillin TAB] 875 mg PO BID 10 Days #20 tablet 06/14/19 Unknown Rx ALBUTEROL NEB's [Proventil 0.083% 2.5 mg IH TID PRN #45 ml 11/29/19 Unknown Rx NEBS] Albuterol Mdi (or & Nicu Only) 1 puff IH Q4-6H PRN #1 inha 11/29/19 Unknown Rx [ProAir HFA Inhaler] Azithromycin [Zithromax Z-RE] 250 mg PO DAILY #6 tablet 11/29/19 Unknown Rx Nebulizer and Compressor 1 each MC PRN #1 each 11/29/19 Unknown Rx [Devilbiss Pulmoneb Lt Comp-Neb] Acetaminophen/Codeine [Tylenol 1 tab PO Q6H PRN #10 tab 02/05/20 Unknown Rx /Codeine # 3 tab] Colchicine 0.6 mg PO DAILY 10 Days #10 capsule 02/05/20 Unknown Rx Prednisone [predniSONE 10 mg 10 mg PO .TAPER #21 tab.ds.pk 02/05/20 Unknown Rx (6-Day Pack, 21 Tabs)] Insulin Aspart Prot/Insuln Asp 40 unit SQ BID #1 vial 04/02/21 Unknown Rx [Relion Novolog Mix 70-30 Vial] Metformin HCl [metFORMIN] 1,000 mg PO BID #60 tablet 04/02/21 Unknown Rx Insulin NPH Hum/Reg Insulin Hm 40 unit SQ BID #3 vial 07/31/21 Unknown Rx [HumuLIN 70-30 Vial] Ondansetron [Zofran Odt] 4 mg PO Q8HR PRN #14 tab.rapdis 07/31/21 Unknown Rx traMADoL [Ultram 50 MG tab] 50 mg PO Q4HR PRN #14 tablet 07/31/21 Unknown Rx ED Review of Systems ROS: Stated complaint: RASH ALL OVER BODY/POTASSIUM LOW/DIABETIC/HODGKINS Other details as noted in HPI Physical Exam - Physical Exam Vital Signs: Vital Signs 12/02/21 12/02/21 12/02/21 13:02 14:18 14:22 Temperature 98.7 F 98.7 F Pulse Rate 100 H 100 H Respiratory 20 20 20 Rate Blood Pressure 107/74 Blood Pressure 107/74 [Right] O2 Sat by Pulse 98 98 98 Oximetry Physical Exam: General: No acute distress Head: Atraumatic Eyes: normal appearance ENT: Moist mucous membranes, no pharyngeal edema Neck: Normal appearance, no midline tenderness Chest: Clear to auscultation bilaterally CV: Regular rate and rhythm Abdomen: Soft, normal bowel sounds, nontender, nondistended, no rebound or guarding Back: Normal inspection Extremity: Normal inspection, full range of motion Neuro: Alert O x 3, no facial asymmetry, speech clear, no gross motor sensory deficit Psych: Appropriate behavior Skin: Generalized pruritic papular rash ED Course Vital Signs 12/02/21 12/02/21 12/02/21 13:02 14:18 14:22 Temperature 98.7 F 98.7 F Pulse Rate 100 H 100 H Respiratory 20 20 20 Rate Blood Pressure 107/74 Blood Pressure 107/74 [Right] O2 Sat by Pulse 98 98 98 Oximetry - Consultations Consultation #1: 12/02/21 16:[address] Hurd (intelligence operations specialist covering Dr. Mosher). States that patient is likely have a reaction to bleomycin. He states this reaction is self-limiting and typically resolves fairly quickly. He does not recommend steroids at this time because patient has a history of poorly controlled diabetes and often presents with a sugar greater than 400. He states that he had a potassium of 2.4 in office and therefore was advised to go to the hospital for evaluation. ED Medical Decision Making - Lab Data Result diagrams: 12/02/21 13:17 12/02/21 13:17 Lab Results 12/02/21 12/02/21 12/02/21 Range/Units 13:17 13:17 15:50 WBC 3.2 L (4.5-11.0) K/mm3 RBC 5.48 H (3.65-5.03) M/mm3 Hgb 12.6 (11.8-15.2) gm/dl Hct 41.1 (35.5-45.6) % MCV 75 L (84-94) fl MCH 23 L (28-32) pg MCHC 31 L (32-34) % RDW 22.2 H (13.2-15.2) % Plt Count 153 (140-440) K/mm3 Seg Neutrophils % Health And Safety Manager Sodium 131 L (137-145) mmol/L Potassium 3.9 (3.6-5.0) mmol/L Chloride 91.4 L (98-107) mmol/L Carbon Dioxide 26 (22-30) mmol/L Anion Gap 18 mmol/L BUN 11 (9-20) mg/dL Creatinine 0.5 L (0.8-1.3) mg/dL Estimated GFR > 60 ml/min BUN/Creatinine Ratio 22 % Glucose 368 H (75-100) mg/dL POC Glucose 308 H (70-105) mg/dL Calcium 9.3 (8.4-10.2) mg/dL Magnesium 1.70 (1.7-2.3) mg/dL Total Bilirubin 0.90 (0.1-1.2) mg/dL AST 7 (5-40) units/L ALT 7 (7-56) units/L Alkaline Phosphatase 88 (35-129) units/L Total Protein 7.5 (6.3-8.2) g/dL Albumin 4.0 (3.9-5) g/dL Albumin/Globulin Ratio 1.1 % - Medical Decision Making 31-year-old male presents to the hospital with rash status post chemotherapy likely secondary to bleomycin (as per patient's intelligence operations specialist). Steroids not recommended. Patient may take Benadryl as needed. Patient had an outpatient potassium of 2.4. In the ED his potassium is 3.9. P.o. potassium provided along with IV fluids and insulin with improvement in glucose level and tachycardia. Critical Care Time: No Critical care attestation.: If time is entered above; I have spent that time in minutes in the direct care of this critically ill patient, excluding procedure time. ED Disposition Clinical Impression: Hyperglycemia due to diabetes mellitus, Adverse drug reaction Disposition: 01 HOME / SELF CARE / HOMELESS Is pt being admited?: No Does the pt Need Aspirin: No Condition: Stable Instructions: Drug Allergy, [id number], Hyperglycemia, [id number], Diabetes Mellitus Type 2 in Adults (ED) Additional Instructions: Your potassium level was normal today. Your potassium level was 3.9. You received an oral dose of potassium 40 mEq in the ER. Your Glucose was mildly elevated and was treated with insulin and IV fluids. Your other labs were unremarkable without acute emergent abnormalities. Your rash is likely due to the bleomycin that you received during your chemotherapy. Take Benadryl as needed for rash/hives and itching. Please follow-up with your oncologist and primary care doctor for further evaluation. Return if symptoms worsen as indicated by your discharge instructions. You have been provided a copy of your labs from today to take to your doctors during your follow-up Referrals: EULA MOSHER MD [Staff Physician] - 3-5 Days Time of Disposition: 18:36
[2021-12-02] MEDS ORDERED: diphenhydrAMINE 25 MG CAP PO ONE (15:49)
[2021-12-02] MEDS ORDERED: SODIUM CHLORIDE 0.9% 1000 ML 1,000 ML IV ONE (15:59)
[2021-12-02 16:04] LABS: Alanine Aminotransferase 7 units/L (7-56); Blood Urea Nitrogen 11 mg/dL (9-20); Calcium 9.3 mg/dL (8.4-10.2); Hemolysis Index 4
[2021-12-02 16:36] LABS: BUN/Creatinine Ratio 22
[2021-12-02] MEDS ORDERED: POTASSIUM CHLORIDE ER 20 MEQ TAB PO ONE (16:38)
[2021-12-02] MEDS ORDERED: INSULIN REGULAR, HUMAN 100 UNITS/1 ML IV ONE (16:41)
[2021-12-02 18:14] VITALS: BP 122/79
[2021-12-02 19:15] LABS: Anisocytosis 1+; Basophils % (Manual) 0 % (0.0-1.8); Hypochromasia 1+; Platelet Estimate Consistent w Auto; Total Cells Counted 100
== END 2021-12-02 18:40 | disposition home or self-care (01) ==
LOC: ED 12:30
DX: E11.65 Type 2 diabetes mellitus with hyperglycemia (principal); T45.1X5A Adverse effect of antineoplastic and immunosuppressive drugs, initial encounter; J45.909 Unspecified asthma, uncomplicated; F17.200 Nicotine dependence, unspecified, uncomplicated; F12.90 Cannabis use, unspecified, uncomplicated; Z91.018 Allergy to other foods; Z91.010 Allergy to peanuts; Z79.899 Other long term (current) drug therapy; Y92.89 Other specified places as the place of occurrence of the external cause
CPT/HCPCS: 36415; 80053; 82962; 83735; 85007; 85025; 96361; 96374; 99283; J7030; Q9967; J1815